=== PATIENT | male | born 1945 | race Caucasian/White ===

== ENCOUNTER 2016-08-02 06:42 | Day surgery (SDC) | payer MEDICARE ==
[2016-07-31 12:17] VITALS: BMI 24.4
[~2016-08-02 06:42] MED LIST: LACTATED RINGERS 1,000 ML IV SCH; LIDOCAINE 1% 20 ML VIAL (10MG/ML) FOR IV START INTRADERMA PRN
[2016-08-02 07:15] VITALS: TEMP 97.8
[2016-08-02] MEDS ORDERED: LACTATED RINGERS 1,000 ML IV ONE (07:16)
[2016-08-02] MEDS ORDERED: PROPOFOL 10 MG/ML 20 ML VIAL IV ONE (07:48)
--- NOTE | 2016-08-02 07:54 | P.GSHP ---
History of Present Illness H&P Date: 08/02/16 Chief Complaint: History of colonic polyps This a 71-year-old male who has history of colonic polyps. Patient rents today for colonoscopy. - Constitutional Constitutional: Reports as per HPI Past Medical History Past Medical History: Cancer, GERD/Reflux, Hyperlipidemia, Hypertension, Rheumatoid Arthritis (RA), Thyroid Disorder Additional Past Medical History / Comment(s): PROSTATE CANCER -BRACYTHERAPY SEEDS IMPLANTED ( 7-8 YRS AGO)., HX OF HIATAL HERNIA WITH SURGERY., HAS POISON CALLUM ON LEFT HAND, FOOT AND SHOULDER. History of Any Multi-Drug Resistant Organisms: None Reported Past Surgical History: Orthopedic Surgery, Tonsillectomy Additional Past Surgical History / Comment(s): COLONOSCOPY, RIGHT KNEE ARTHROSCOPY, BRACHYTHERAPY SEED IMPLANT Past Anesthesia/Blood Transfusion Reactions: No Reported Reaction Additional Past Anesthesia/Blood Transfusion Reaction / Comment(s): FELT DIZZY AFTER COLONOSCOPY. Past Psychological History: No Psychological Hx Reported Smoking Status: Never smoker Past Alcohol Use History: Occasional Additional Past Alcohol Use History / Comment(s): APPROX 10 DRINKS PER WEEK. Past Drug Use History: None Reported - Past Family History Mother Family Medical History: No Reported History Brother(s) Family Medical History: Cancer Additional Family Medical History / Comment(s): liver Medications and Allergies Home Medications Medication Instructions Recorded Confirmed Type Aspirin 81 mg PO DAILY 07/13/15 08/02/16 History Lisinopril [Zestril] 5 mg PO DAILY 07/13/15 08/02/16 History Pravastatin Sodium [Pravachol] 20 mg PO HS 07/13/15 08/02/16 History Cholecalciferol [Vitamin D3] 1,000 unit PO DAILY 01/10/16 08/02/16 History Folic Acid 1 mg PO DAILY 01/10/16 08/02/16 History Methotrexate Sodium [Methotrexate] 25 mg PO TU 01/10/16 08/02/16 History Calcium 1200mg & D3 1000 1 tab PO DAILY 07/31/16 08/02/16 History Colestipol 10 mg PO DAILY 07/31/16 08/02/16 History Levothyroxine Sodium 125 mcg PO DAILY 07/31/16 08/02/16 History Allergies Allergy/AdvReac Type Severity Reaction Status Date / Time No Known Allergies Allergy Verified 08/02/16 07:08 Surgical - Exam Vital Signs Temp Pulse Resp BP Pulse Ox 97.8 F 50 L 18 139/83 98 08/02/16 07:13 08/02/16 07:13 08/02/16 07:13 08/02/16 07:13 08/02/16 07:13 - General well developed, no distress - Eyes PERRL - ENT normal pinna - Neck no masses - Respiratory normal expansion - Cardiovascular Rhythm: regular - Abdomen Abdomen: soft, non tender Assessment and Plan Plan: History of colonic polyps. We'll perform colonoscopy.
--- NOTE | 2016-08-02 08:11 | P.OP ---
Date of Procedure: 08/02/16 Preoperative Diagnosis: Colon polyps Postoperative Diagnosis: Multiple colon polyps located near the hepatic flexure Procedure(s) Performed: Colonoscopy Implants: Anesthesia: MAC Surgeon: Rasta Babin Pathology: other (Colon polyps) Condition: stable Disposition: PACU Indications for Procedure: Operative Findings: Description of Procedure: The patient's placed on the endoscopy table lateral position. He received IV sedation. Digital rectal exam was performed which revealed a few external hemorrhoids. The prostate was symmetric without nodules. The flexible colonoscope was then placed patient anus passed throughout the entire colon. The ileocecal valve was visualized. The cecum, ascending colon appeared normal. Just distal to the hepatic flexure there was a cluster of small sessile polyps. His removed with a forcep. This cluster was in the same location as his previous colonoscopy. This point there scope was withdrawn and the remainder of the transverse colon descending colon appeared normal. In the sigmoid: There a few scattered diverticula. The scope was then brought back the rectum and this appeared normal. Scope was withdrawn for patient.
[2016-08-02 08:27] VITALS: RESP 16
[2016-08-02 08:38] VITALS: BP 130/79; PULSE 54
== END 2016-08-02 09:43 | disposition home or self-care (01) ==
LOC: ORWHC2ENDO 06:42
PROVIDERS: ATTEND Surgery
DX: Z12.11 Encounter for screening for malignant neoplasm of colon (principal); K63.5 Polyp of colon; Z86.010 Personal history of colon polyps; K64.4 Residual hemorrhoidal skin tags; K21.9 Gastro-esophageal reflux disease without esophagitis; E78.5 Hyperlipidemia, unspecified; I10 Essential (primary) hypertension; M06.9 Rheumatoid arthritis, unspecified; E07.9 Disorder of thyroid, unspecified; Z85.46 Personal history of malignant neoplasm of prostate; Z79.899 Other long term (current) drug therapy; Z79.82 Long term (current) use of aspirin
CPT/HCPCS: 88305; 45380; J2704

== ENCOUNTER 2017-08-29 09:29 | Day surgery (SDC) | payer MEDICARE ==
[2017-08-26 16:46] VITALS: BMI 23.7
[~2017-08-29 09:29] MED LIST changes: -LIDOCAINE 1% 20 ML VIAL (10MG/ML) FOR IV START INTRADERMA PRN
[2017-08-29 10:07] VITALS: TEMP 97.4
[2017-08-29] MEDS ORDERED: LIDOCAINE 1% 20 ML VIAL (10MG/ML) FOR IV START INTRADERMA ONE (10:07)
[2017-08-29] MEDS ORDERED: PROPOFOL 10 MG/ML 20 ML VIAL IV ONE (11:34)
[2017-08-29] MEDS ORDERED: LIDOCAINE 1% INJ 10MG/ML (20 ML MDV) ONE (11:34)
--- NOTE | 2017-08-29 11:38 | P.GSHP ---
History of Present Illness H&P Date: 08/29/17 Chief Complaint: History of colon polyps This a 72-year-old male who presents today for colonoscopy. Patient had previous colon polyps. He denies any GI bleed. Past Medical History Past Medical History: Cancer, GERD/Reflux, Hyperlipidemia, Hypertension, Rheumatoid Arthritis (RA), Thyroid Disorder Additional Past Medical History / Comment(s): PROSTATE CANCER -BRACYTHERAPY SEEDS IMPLANTED ( 7-8 YRS AGO)., HX OF HIATAL HERNIA WITH SURGERY History of Any Multi-Drug Resistant Organisms: None Reported Past Surgical History: Orthopedic Surgery, Tonsillectomy Additional Past Surgical History / Comment(s): COLONOSCOPY, RIGHT KNEE ARTHROSCOPY, BRACHYTHERAPY SEED IMPLANT Past Anesthesia/Blood Transfusion Reactions: No Reported Reaction Additional Past Anesthesia/Blood Transfusion Reaction / Comment(s): FELT DIZZY AFTER COLONOSCOPY. Smoking Status: Never smoker - Past Family History Mother Family Medical History: No Reported History Brother(s) Family Medical History: Cancer Additional Family Medical History / Comment(s): liver Medications and Allergies Home Medications Medication Instructions Recorded Confirmed Type Lisinopril [Zestril] 5 mg PO QAM 07/13/15 08/29/17 History Pravastatin Sodium [Pravachol] 20 mg PO HS 07/13/15 08/29/17 History Cholecalciferol [Vitamin D3] 1,000 unit PO DAILY 01/10/16 08/29/17 History Folic Acid 1 mg PO DAILY 01/10/16 08/29/17 History Methotrexate Sodium [Methotrexate] 25 mg PO TU 01/10/16 08/29/17 History Levothyroxine Sodium 125 mcg PO QAM 07/31/16 08/29/17 History Aspirin 81 mg PO DAILY 08/26/17 08/29/17 History Colestipol [Colestid] 10 gm PO DAILY 08/26/17 08/29/17 History Allergies Allergy/AdvReac Type Severity Reaction Status Date / Time No Known Allergies Allergy Verified 08/29/17 10:05 Surgical - Exam Vital Signs Temp Pulse Resp BP Pulse Ox 97.4 F L 49 L 18 141/80 98 08/29/17 10:00 08/29/17 10:00 08/29/17 10:00 08/29/17 10:08/29/17 10:00 - General well developed, well nourished, no distress - Eyes PERRL - ENT normal pinna - Neck no masses - Respiratory normal expansion - Cardiovascular Rhythm: regular - Abdomen Abdomen: soft, non tender Assessment and Plan Assessment: History of colon polyps. We'll perform colonoscopy.
--- NOTE | 2017-08-29 12:01 | P.OP ---
Date of Procedure: 08/29/17 Preoperative Diagnosis: Colon polyps Postoperative Diagnosis: Hepatic flexure colon polyps Procedure(s) Performed: Colonoscopy Anesthesia: MAC Surgeon: Rasta Babin Pathology: other (Hepatic flexure colon polyps) Condition: stable Disposition: PACU Description of Procedure: The patient's placed on the endoscopy table in the lateral position. He received IV sedation. Digital rectal exam was performed which revealed a hemorrhoid. The flexible colonoscope was then placed patient anus passed throughout the entire colon. The ileocecal valve was visualized. This week and , ascending colon appeared normal. At the level of the hepatic flexure there was a cluster of polyps. This appeared to have increased in size was previous colonoscopy. I released ulcer biopsied. The area was tattooed with the ink spot just distal to the area the polyps. The remainder of the transverse colon descending and sigmoid colon appeared normal. The scope summer back the rectum and this appeared normal. Scope was withdrawn for patient.
[2017-08-29 12:17] VITALS: BP 125/79; PULSE 49; RESP 18
== END 2017-08-29 12:41 | disposition home or self-care (01) ==
LOC: ORWHC2ENDO 09:29
PROVIDERS: ATTEND Surgery
DX: Z12.11 Encounter for screening for malignant neoplasm of colon (principal); K63.5 Polyp of colon; Z86.010 Personal history of colon polyps; K21.9 Gastro-esophageal reflux disease without esophagitis; E78.5 Hyperlipidemia, unspecified; I10 Essential (primary) hypertension; M06.9 Rheumatoid arthritis, unspecified; E07.9 Disorder of thyroid, unspecified; Z85.46 Personal history of malignant neoplasm of prostate; Z79.82 Long term (current) use of aspirin; Z79.890 Hormone replacement therapy; Z79.899 Other long term (current) drug therapy
CPT/HCPCS: 88305; 45380; 45381; J2001; J2704; 44404

== ENCOUNTER → 2017-09-19 | Outpatient (CLI) | payer MEDICARE ==
[2017-09-19 10:21] LABS: HCT 40.3 % (39.0-53.0); HGB 13.6 gm/dL (13.0-17.5); MCH 33.2 pg (25.0-35.0); MCHC 33.7 g/dL (31.0-37.0); MCV 98.6 fL (80.0-100.0); Mean Platelet Volume 7.2; Platelet Count 240 k/uL (150-450); RBC 4.09 m/uL (4.30-5.90); RDW 13.4 % (11.5-15.5); WBC 4.5 k/uL (3.8-10.6)
== END | disposition home or self-care (01) ==
LOC: LABPAT 09:32
PROVIDERS: ATTEND Surgery
DX: Z01.818 Encounter for other preprocedural examination (principal); K63.5 Polyp of colon; Z01.812 Encounter for preprocedural laboratory examination; Z90.49 Acquired absence of other specified parts of digestive tract
CPT/HCPCS: 36415; 80051; 85027; 86850; 86900; 86901; 93005

== ENCOUNTER 2017-09-26 08:12 | Inpatient (IN) | payer MEDICARE ==
[2017-09-19 15:07] VITALS: BMI 23.7
[~2017-09-26 08:12] MED LIST changes: +DEXAMETHASONE SOD PHOSPHATE 10 MG/ML 1 ML VIAL IV ONE; +FAMOTIDINE 20 MG/2 ML VIAL IV PRN; +HEPARIN SODIUM,PORCINE 5,000 UNIT/ML 1 ML VIAL SQ ONE; +HYDROmorphone 0.5 MG/0.5 ML SYRINGE IVP PRN; -LACTATED RINGERS 1,000 ML IV SCH; +LIDOCAINE 1% 20 ML VIAL (10MG/ML) FOR IV START INTRADERMA PRN; +ONDANSETRON 4 MG/2 ML VIAL IVP ONE; +ceFAZolin IN SWFI 2 GM/20 ML SYRINGE IVP ONE; +metroNIDAZOLE-NS PMX 500 MG in SALINE 1 100ML.BAG IVPB ONE
[2017-09-26] MEDS ORDERED: ONDANSETRON 4 MG/2 ML VIAL IVP PRN ×2 (09:07→12:23)
[2017-09-26] MEDS ORDERED: NALOXONE 0.4 MG/ML 1 ML VIAL IV PRN (09:07)
[2017-09-26] MEDS ORDERED: NALBUPHINE 10 MG/ML VIAL (10ML MDV) IV PRN (09:07)
[2017-09-26] MEDS ORDERED: ROPIVACAINE 300 MG, HYDROMORPHONE (PF) 5 MG in SODIUM CHLORIDE 0.9% 190 ML EPIDURAL PRN (09:07)
[2017-09-26] MEDS: LACTATED RINGERS 1,000 ML IV SCH ×3 (09:16→19:46)
[2017-09-26 09:24] LABS: Basophils % (A) 0 %; Eosinophils # (A) 0.1 k/uL (0-0.7); Eosinophils % (A) 2 %; HCT 41.1 % (39.0-53.0); HGB 13.7 gm/dL (13.0-17.5); Lymphocytes # (A) 0.9 k/uL (1.0-4.8); Lymphocytes % (A) 17 %; MCH 32.9 pg (25.0-35.0); MCHC 33.4 g/dL (31.0-37.0); MCV 98.6 fL (80.0-100.0); Mean Platelet Volume 7.2; Monocytes # (A) 0.4 k/uL (0-1.0); Monocytes % (A) 7 %; Neutrophils # (A) 3.6 k/uL (1.3-7.7); Neutrophils % (A) 70 %; Platelet Count 266 k/uL (150-450); RBC 4.17 m/uL (4.30-5.90); RDW 13.9 % (11.5-15.5); WBC 5.1 k/uL (3.8-10.6)
[2017-09-26 09:32] LABS: Albumin 4.4 g/dL (3.5-5.0); Calcium 9.5 mg/dL (8.4-10.2); Potassium 4.3 mmol/L (3.5-5.1); Total Protein 6.7 g/dL (6.3-8.2)
--- NOTE | 2017-09-26 09:59 | P.GSHP ---
History of Present Illness H&P Date: 09/26/17 Chief Complaint: History of colon polyps This a 72-year-old male presents today for laparoscopic right colectomy. Patient has history of colon polyps. He presents today for right colectomy due to recurrent polyps. Past Medical History Past Medical History: Cancer, GERD/Reflux, Hyperlipidemia, Hypertension, Rheumatoid Arthritis (RA), Thyroid Disorder Additional Past Medical History / Comment(s): PROSTATE CANCER -BRACYTHERAPY SEEDS IMPLANTED ( 7-8 YRS AGO)., HX OF HIATAL HERNIA WITH SURGERY History of Any Multi-Drug Resistant Organisms: None Reported Past Surgical History: Orthopedic Surgery, Tonsillectomy Additional Past Surgical History / Comment(s): COLONOSCOPY, RIGHT KNEE ARTHROSCOPY, BRACHYTHERAPY SEED IMPLANT Past Anesthesia/Blood Transfusion Reactions: No Reported Reaction Additional Past Anesthesia/Blood Transfusion Reaction / Comment(s): FELT DIZZY AFTER COLONOSCOPY. Smoking Status: Never smoker - Past Family History Mother Family Medical History: No Reported History Brother(s) Family Medical History: Cancer Additional Family Medical History / Comment(s): liver Medications and Allergies Home Medications Medication Instructions Recorded Confirmed Type Lisinopril [Zestril] 5 mg PO QAM 07/13/15 09/26/17 History Pravastatin Sodium [Pravachol] 20 mg PO HS 07/13/15 09/26/17 History Cholecalciferol [Vitamin D3] 1,000 unit PO DAILY 01/10/16 09/26/17 History Folic Acid 1 mg PO DAILY 01/10/16 09/26/17 History Methotrexate Sodium [Methotrexate] 25 mg PO TU 01/10/16 09/26/17 History Levothyroxine Sodium 125 mcg PO QAM 07/31/16 09/26/17 History Aspirin 81 mg PO DAILY 08/26/17 09/26/17 History Colestipol [Colestid] 10 gm PO DAILY 08/26/17 09/26/17 History Allergies Allergy/AdvReac Type Severity Reaction Status Date / Time No Known Allergies Allergy Verified 09/26/17 08:51 Surgical - Exam Vital Signs Temp Pulse Resp BP Pulse Ox 98.6 F 55 L 16 160/81 98 09/26/17 08:47 09/26/17 08:47 09/26/17 08:47 09/26/17 08:47 09/26/17 08:47 - General well developed, no distress - Eyes PERRL - ENT normal pinna - Neck no masses - Respiratory normal expansion - Cardiovascular Rhythm: regular - Abdomen Abdomen: soft, non tender Results - Labs 09/26/17 09:05 09/26/17 09:05 Abnormal Lab Results - Last 24 Hours (Table) 09/26/17 09/26/17 Range/Units 09:05 09:05 RBC 4.17 L (4.30-5.90) m/uL Lymphocytes # 0.9 L (1.0-4.8) k/uL Total Bilirubin 2.0 H (0.2-1.3) mg/dL Diabetes panel 09/26/17 Range/Units 09:05 Sodium 141 (137-145) mmol/L Potassium 4.3 (3.5-5.1) mmol/L Chloride 106 (98-107) mmol/L Carbon Dioxide 27 (22-30) mmol/L BUN 17 (9-20) mg/dL Creatinine 1.01 (0.66-1.25) mg/dL Glucose 95 (74-99) mg/dL Calcium 9.5 (8.4-10.2) mg/dL AST 27 (17-59) U/L ALT 23 (21-72) U/L Alkaline Phosphatase 53 (38-126) U/L Total Protein 6.7 (6.3-8.2) g/dL Albumin 4.4 (3.5-5.0) g/dL Calcium panel 09/26/17 Range/Units 09:05 Calcium 9.5 (8.4-10.2) mg/dL Albumin 4.4 (3.5-5.0) g/dL Pituitary panel 09/26/17 Range/Units 09:05 Sodium 141 (137-145) mmol/L Potassium 4.3 (3.5-5.1) mmol/L Chloride 106 (98-107) mmol/L Carbon Dioxide 27 (22-30) mmol/L BUN 17 (9-20) mg/dL Creatinine 1.01 (0.66-1.25) mg/dL Glucose 95 (74-99) mg/dL Calcium 9.5 (8.4-10.2) mg/dL Adrenal panel 09/26/17 Range/Units 09:05 Sodium 141 (137-145) mmol/L Potassium 4.3 (3.5-5.1) mmol/L Chloride 106 (98-107) mmol/L Carbon Dioxide 27 (22-30) mmol/L BUN 17 (9-20) mg/dL Creatinine 1.01 (0.66-1.25) mg/dL Glucose 95 (74-99) mg/dL Calcium 9.5 (8.4-10.2) mg/dL Total Bilirubin 2.0 H (0.2-1.3) mg/dL AST 27 (17-59) U/L ALT 23 (21-72) U/L Alkaline Phosphatase 53 (38-126) U/L Total Protein 6.7 (6.3-8.2) g/dL Albumin 4.4 (3.5-5.0) g/dL Assessment and Plan Assessment: History of right colon polyps. We'll perform laparoscopic right colectomy. Sure the risks of conversion O procedure. He is also a risk of possible colostomy and wound infection.
[2017-09-26] MEDS ORDERED: MIDAZOLAM 2 MG/2 ML VIAL ONE (10:17)
[2017-09-26] MEDS ORDERED: GLYCOPYRROLATE 0.2 MG/ML 2 ML VIAL ONE (10:17)
[2017-09-26] MEDS ORDERED: HYDROmorphone (PF) 1 MG/ML ONE (10:17)
[2017-09-26] MEDS ORDERED: fentaNYL (PF) 50 MCG/ML 2 ML AMP ONE (10:17)
[2017-09-26] MEDS ORDERED: LIDOCAINE 1% INJ 10MG/ML (20 ML MDV) ONE (10:17)
[2017-09-26] MEDS ORDERED: NEOSTIGMINE 1 MG/ML 10 ML VIAL ONE (10:17)
[2017-09-26] MEDS ORDERED: PROPOFOL 10 MG/ML 20 ML VIAL IV ONE (10:17)
[2017-09-26] MEDS ORDERED: VECURONIUM 10 MG VIAL IV ONE (10:17)
[2017-09-26] MEDS ORDERED: BUPIVACAINE-EPI 0.5%-1:200,000 10 ML VIAL SQ ONE (10:48)
[2017-09-26] MEDS ORDERED: MEPERIDINE 50 MG/ML SYRINGE IVP ONE (11:54)
[2017-09-26] MEDS ORDERED: BENZOCAINE/MENTHOL LOZENG 1 EACH LOZENGE MUCOUS MEM PRN (12:23)
[2017-09-26] MEDS ORDERED: METOCLOPRAMIDE 5 MG/ML 2 ML VIAL IVP PRN (12:23)
--- NOTE | 2017-09-26 12:31 | P.OP ---
Date of Procedure: 09/26/17 Preoperative Diagnosis: Colon polyps Postoperative Diagnosis: Defer to pathology Procedure(s) Performed: Endoscopic right colectomy Partial omentectomy` Anesthesia: JAMELA Surgeon: Rasta Babin Estimated Blood Loss (ml): 50 Pathology: other (Right colon) Condition: stable Disposition: PACU Description of Procedure: The patient's placed on the operating table in the supine position. He received general anesthesia. His abdomen was prepped and draped in usual sterile fashion. Using a 5 mm optical trocar under direct visualization the peritoneal cavity was entered in the left upper quadrant. After adequate insufflation the laparoscope placed back the pleural cavity. Next a 5 mm trocar was placed in the midline suprapubic position and another 5 mm trochars placed in the left lateral position. The patient's placed the right side up position. The right colon was inspected. The area of the tattoo was seen at the hepatic flexure. At this point the right colon was mobilized by dividing the white line of Toldt with a Harmonic scissors. The transverse colon was mobilized well. After the colon was mobilized the trochars withdrawn. A small incision was made at the umbilicus. And then the colon was brought up through the wound. The terminal ileum was transected with a GI stapler. The proximal transverse colon was transected with the JUAN MANUEL stapler. The mesentery the bowel was divided using the Harmonic scissors. The presence of pathology. There was a portion of omentum which was sent to pathology as well. [id number] functional end-to-end staple anastomosis created using the JUAN MANUEL and TA stapler. 3-0 GI silk suture was used as a crotch stitch. The abdomen was irrigated there is no bleeding seen. The fascia was closed with 0 Vicryl suture. Skin was closed interrupted 3-0 Monocryl suture. Dermabond was applied. Patient tolerated the procedure and well and sent to recovery in stable condition.
[2017-09-26] MEDS: D5-0.45% NACL WITH KCL 20MEQ/L 1,000 ML IV SCH ×2 (14:16→20:02)
[2017-09-26] MEDS: HYDROmorphone 1 MG/ML 1 ML SYRINGE IVP PRN ×3 (14:52→22:20)
--- NOTE | 2017-09-26 15:17 | P.CONS ---
History of Present Illness - Reason for Consult Consult date: 09/26/17 Medical management Requesting physician: Rasta Babin - Chief Complaint Status post right colectomy - History of Present Illness This is a 72-year-old male, patient of [facility]. He has a known past medical history of hypertension, rheumatoid arthritis, hypothyroidism, hyperlipidemia and prostate cancer. Patient has had issues with recurrent colon polyps. And his undergone endoscopic right colectomy and partial omentectomy with Dr. Babin today. Estimated blood loss 50 mL. No complications after surgery. Patient is lying in bed comfortably. Reports pain is controlled. Denies any chest pain or shortness of breath denies any nausea or vomiting. Denies any bowel movement changes prior to surgery. Denies any burning with urination. Given consulted for medical management. Review of Systems Please refer to HPI otherwise unremarkable Past Medical History Past Medical History: Cancer, GERD/Reflux, Hyperlipidemia, Hypertension, Rheumatoid Arthritis (RA), Thyroid Disorder Additional Past Medical History / Comment(s): PROSTATE CANCER -BRACYTHERAPY SEEDS IMPLANTED ( 7-8 YRS AGO)., HX OF HIATAL HERNIA WITH SURGERY History of Any Multi-Drug Resistant Organisms: None Reported Past Surgical History: Orthopedic Surgery, Tonsillectomy Additional Past Surgical History / Comment(s): COLONOSCOPY, RIGHT KNEE ARTHROSCOPY, BRACHYTHERAPY SEED IMPLANT Past Anesthesia/Blood Transfusion Reactions: No Reported Reaction Additional Past Anesthesia/Blood Transfusion Reaction / Comm: FELT DIZZY AFTER COLONOSCOPY. Smoking Status: Never smoker - Past Family History Mother Family Medical History: No Reported History Brother(s) Family Medical History: Cancer Additional Family Medical History / Comment(s): liver Medications and Allergies Home Medications Medication Instructions Recorded Confirmed Type Lisinopril [Zestril] 5 mg PO QAM 07/13/15 09/26/17 History Pravastatin Sodium [Pravachol] 20 mg PO HS 07/13/15 09/26/17 History Cholecalciferol [Vitamin D3] 1,000 unit PO DAILY 01/10/16 09/26/17 History Folic Acid 1 mg PO DAILY 01/10/16 09/26/17 History Methotrexate Sodium [Methotrexate] 25 mg PO TU 01/10/16 09/26/17 History Levothyroxine Sodium 125 mcg PO QAM 07/31/16 09/26/17 History Aspirin 81 mg PO DAILY 08/26/17 09/26/17 History Colestipol [Colestid] 10 gm PO DAILY 08/26/17 09/26/17 History Allergies Allergy/AdvReac Type Severity Reaction Status Date / Time No Known Allergies Allergy Verified 09/26/17 13:08 Physical Exam Vitals: Vital Signs Temp Pulse Resp BP Pulse Ox 09/26/17 12:30 59 L 16 131/66 95 09/26/17 12:15 59 L 16 130/67 99 09/26/17 12:00 64 16 145/70 99 09/26/17 11:49 97.1 F L 73 18 140/90 100 09/26/17 08:47 98.6 F 55 L 16 160/81 98 Intake and Output 09/26/17 09/26/17 09/26/17 06:59 14:59 22:59 Intake Total 900 200 Output Total 75 Balance 825 200 Intake: IV 900 Oral 200 Output: Estimated Blood Loss 75 Head normocephalic Neck supple Lungs clear to auscultation bilaterally no wheezing or crackles Heart regular rate and rhythm S1-S2, no rub or gallop Abdomen is soft tender incision sites. Incision sites clean dry and intact Extremities no edema Neuro alert and orientated to 3 Results CBC & Chem 7: 09/26/17 09:05 09/26/17 09:05 Labs: Abnormal Lab Results - Last 24 Hours (Table) 09/26/17 09/26/17 Range/Units 09:05 09:05 RBC 4.17 L (4.30-5.90) m/uL Lymphocytes # 0.9 L (1.0-4.8) k/uL Total Bilirubin 2.0 H (0.2-1.3) mg/dL Assessment and Plan Assessment: 1. Colon polyps status post endoscopic right colectomy and partial omentectomy. Surgical service history patient on clear liquid diet. Continue his current pain management. 2. History of prostate cancer status post brachytherapy seeds implanted 7 to 8 years ago 3. Rheumatoid arthritis: Resume methotrexate 4. Essential hypertension: Resume lisinopril 5. Hyperlipidemia: Continue Pravachol 6. Hypothyroidism resume hypothyroidism 7. GERD with history of Will fundoplication GI prophylaxis Pepcid and DVT prophylaxis subcu heparin Thank you for this consultation. We'll continue to follow along during patient' s hospitalization Time with Patient: Greater than 30 (Greater than 60% of the total time spent in counseling and coordination of care.I performed an examination of the patient and discussed their management with the physician Director Epidemiology. I have reviewed the Physician Director Epidemiology's notes and agree with the documented findings and plan of care)
[2017-09-26] MEDS: HEPARIN SODIUM,PORCINE 5,000 UNIT/ML 1 ML VIAL SQ SCH ×2 (16:37→23:50)
[2017-09-26] MEDS: FAMOTIDINE 20 MG/2 ML VIAL IV SCH (19:56)
[2017-09-26] MEDS: PRAVASTATIN SODIUM 20 MG TAB PO SCH (19:56)
[2017-09-26] MEDS ORDERED: CALAMINE/ZINC OXIDE LOTION 177 ML BTL TOPICAL PRN (20:06)
[2017-09-27] MEDS: HYDROmorphone 1 MG/ML 1 ML SYRINGE IVP PRN ×3 (02:26→18:32)
[2017-09-27] MEDS: D5-0.45% NACL WITH KCL 20MEQ/L 1,000 ML IV SCH ×2 (04:46→12:06)
[2017-09-27] MEDS: LACTATED RINGERS 1,000 ML IV SCH (05:18)
[2017-09-27] MEDS: LEVOTHYROXINE 125 MCG TAB PO SCH (05:44)
[2017-09-27 07:12] LABS: Basophils % (A) 0 %; Eosinophils % (A) 0 %; HCT 33.9 % (39.0-53.0); HGB 11.2 gm/dL (13.0-17.5); Lymphocytes # (A) 0.6 k/uL (1.0-4.8); Lymphocytes % (A) 5 %; MCH 32.7 pg (25.0-35.0); MCHC 33.2 g/dL (31.0-37.0); MCV 98.6 fL (80.0-100.0); Mean Platelet Volume 7.3; Monocytes # (A) 0.5 k/uL (0-1.0); Monocytes % (A) 5 %; Neutrophils # (A) 9.3 k/uL (1.3-7.7); Neutrophils % (A) 89 %; Platelet Count 241 k/uL (150-450); RBC 3.43 m/uL (4.30-5.90); RDW 13.2 % (11.5-15.5); WBC 10.5 k/uL (3.8-10.6)
[2017-09-27 07:19] LABS: ALT 18 U/L (21-72); AST 20 U/L (17-59); Albumin 3.3 g/dL (3.5-5.0); Alkaline Phosphatase 40 U/L (38-126); Anion Gap 6 mmol/L; Blood Urea Nitrogen 14 mg/dL (9-20); Calcium 8.7 mg/dL (8.4-10.2); Carbon Dioxide 24 mmol/L (22-30); Chloride 103 mmol/L (98-107); Glucose 134 mg/dL (74-99); Potassium 4.5 mmol/L (3.5-5.1); Sodium 133 mmol/L (137-145); Total Bilirubin 1.4 mg/dL (0.2-1.3); Total Protein 5.5 g/dL (6.3-8.2)
[2017-09-27] MEDS: ALVIMOPAN 12 MG CAPSULE PO SCH ×2 (08:37→20:37)
[2017-09-27] MEDS: FAMOTIDINE 20 MG/2 ML VIAL IV SCH ×2 (08:38→20:38)
[2017-09-27] MEDS: FOLIC ACID 1 MG TAB PO SCH (08:39)
[2017-09-27] MEDS: CHOLECALCIFEROL 1,000 UNIT TAB PO SCH (08:40)
[2017-09-27] MEDS: LISINOPRIL 5 MG TAB PO SCH (08:40)
[2017-09-27] MEDS: HEPARIN SODIUM,PORCINE 5,000 UNIT/ML 1 ML VIAL SQ SCH ×3 (08:40→23:16)
[2017-09-27] MEDS: COLESTIPOL PO SCH (10:08)
--- NOTE | 2017-09-27 12:39 | P.PN ---
Subjective Progress Note Date: 09/27/17 This is a 72-year-old male, patient of [facility]. He has a known past medical history of hypertension, rheumatoid arthritis, hypothyroidism, hyperlipidemia and prostate cancer. Patient has had issues with recurrent colon polyps. And his undergone endoscopic right colectomy and partial omentectomy with Dr. Babin today. Estimated blood loss 50 mL. No complications after surgery. Patient is lying in bed comfortably. Reports pain is controlled. Denies any chest pain or shortness of breath denies any nausea or vomiting. Denies any bowel movement changes prior to surgery. Denies any burning with urination. Given consulted for medical management. 09/27/2017 patient reports that his pain is controlled. He has been up and ambulating. No nausea or vomiting. He is not passing gas or had a bowel movement yet. Denies any chest pain or shortness of breath. Denies any difficulty urinating. Currently on a clear liquid diet. Sodium level has dropped from 141-133 Objective - Vital Signs Vital signs: Vital Signs Temp 97.3 F L 09/27/17 08:32 Pulse 53 L 09/27/17 08:32 Resp 16 09/27/17 08:32 BP 103/51 09/27/17 08:32 Pulse Ox 99 09/27/17 08:32 Intake & Output 09/26/17 09/27/17 09/27/17 18:59 06:59 18:59 Intake Total 1337 1000 360 Output Total 75 Balance 1262 1000 360 Weight 77.111 kg Intake: IV 900 Intake, IV Titration 1000 Amount D5-0.45% NaCl with KCl 1000 20Meq/l 1,000 ml @ 125 mls/hr IV .Q8H [facility] Rx#: [id number] Oral 437 360 Output: Estimated Blood Loss 75 Other: # Voids 1 1 - Exam Head normocephalic Neck supple Lungs clear to auscultation bilaterally no wheezing or crackles Heart regular rate and rhythm S1-S2, no rub or gallop Abdomen is soft hypoactive bowel sounds nondistended Extremities no edema Neuro alert and orientated to 3 - Labs CBC & Chem 7: 09/27/17 06:16 09/27/17 06:16 Labs: Abnormal Lab Results - Last 24 Hours (Table) 09/27/17 09/27/17 Range/Units 06:16 06:16 RBC 3.43 L (4.30-5.90) m/uL Hgb 11.2 L (13.0-17.5) gm/dL Hct 33.9 L (39.0-53.0) % Neutrophils # 9.3 H (1.3-7.7) k/uL Lymphocytes # 0.6 L (1.0-4.8) k/uL Sodium 133 L (137-145) mmol/L Glucose 134 H (74-99) mg/dL Total Bilirubin 1.4 H (0.2-1.3) mg/dL ALT 18 L (21-72) U/L Total Protein 5.5 L (6.3-8.2) g/dL Albumin 3.3 L (3.5-5.0) g/dL Assessment and Plan Assessment: 1. Colon polyps status post endoscopic right colectomy and partial omentectomy. Surgical service history patient on clear liquid diet. Continue his current pain management. 2. History of prostate cancer status post brachytherapy seeds implanted 7 to 8 years ago 3. Rheumatoid arthritis: Resume methotrexate 4. Essential hypertension: Resume lisinopril 5. Hyperlipidemia: Continue Pravachol 6. Hypothyroidism resume hypothyroidism 7. GERD with history of Will fundoplication 8. Hyponatremia: Sodium 133. Repeat labs in a.m. and monitor GI prophylaxis Pepcid and DVT prophylaxis subcu heparin I performed an examination of the patient and discussed their management with the physician Hospice Fellow. I have reviewed the Physician Hospice Fellow's notes and agree with the documented findings and plan of care
--- NOTE | 2017-09-27 18:14 | P.PN ---
Subjective Progress Note Date: 09/27/17 Principal diagnosis: Right colon polyps Patient's postoperative day 1 from laparoscopic right colectomy. He is doing quite well. He has minimal points of pain. Objective - Vital Signs Vital signs: Vital Signs Temp 98.9 F 09/27/17 15:46 Pulse 56 L 09/27/17 15:46 Resp 16 09/27/17 16:00 BP 146/83 09/27/17 15:46 Pulse Ox 98 09/27/17 15:46 Intake & Output 09/26/17 09/27/17 09/27/17 18:59 06:59 18:59 Intake Total 1337 1000 360 Output Total 75 Balance 1262 1000 360 Weight 77.111 kg Intake: IV 900 Intake, IV Titration 1000 Amount D5-0.45% NaCl with KCl 1000 20Meq/l 1,000 ml @ 125 mls/hr IV .Q8H [facility] Rx#: [id number] Oral 437 360 Output: Estimated Blood Loss 75 Other: # Voids 1 2 - Gastrointestinal Gastrointestinal Comment(s): Abdomen soft. Incision site is clean dry tach. - Labs CBC & Chem 7: 09/27/17 06:16 09/27/17 06:16 Labs: Abnormal Lab Results - Last 24 Hours (Table) 09/27/17 09/27/17 Range/Units 06:16 06:16 RBC 3.43 L (4.30-5.90) m/uL Hgb 11.2 L (13.0-17.5) gm/dL Hct 33.9 L (39.0-53.0) % Neutrophils # 9.3 H (1.3-7.7) k/uL Lymphocytes # 0.6 L (1.0-4.8) k/uL Sodium 133 L (137-145) mmol/L Glucose 134 H (74-99) mg/dL Total Bilirubin 1.4 H (0.2-1.3) mg/dL ALT 18 L (21-72) U/L Total Protein 5.5 L (6.3-8.2) g/dL Albumin 3.3 L (3.5-5.0) g/dL Assessment and Plan Assessment: Status post right colectomy for colonic polyps. Patient is doing well. Most likely discharged home in the next 48 hours.
[2017-09-27] MEDS: SODIUM CHLORIDE 0.9% 1,000 ML IV SCH ×2 (18:32→23:53)
[2017-09-27] MEDS: PRAVASTATIN SODIUM 20 MG TAB PO SCH (20:37)
[2017-09-28] MEDS: HYDROmorphone 1 MG/ML 1 ML SYRINGE IVP PRN ×5 (00:15→21:22)
[2017-09-28] MEDS: LACTATED RINGERS 1,000 ML IV SCH (05:45)
[2017-09-28] MEDS: LEVOTHYROXINE 125 MCG TAB PO SCH (05:45)
[2017-09-28 07:39] LABS: Basophils % (A) 0 %; Eosinophils # (A) 0.1 k/uL (0-0.7); Eosinophils % (A) 1 %; HCT 41.7 % (39.0-53.0); HGB 13.2 gm/dL (13.0-17.5); Lymphocytes # (A) 1.6 k/uL (1.0-4.8); Lymphocytes % (A) 17 %; MCH 31.7 pg (25.0-35.0); MCHC 31.7 g/dL (31.0-37.0); MCV 99.8 fL (80.0-100.0); Mean Platelet Volume 7.7; Monocytes # (A) 0.5 k/uL (0-1.0); Monocytes % (A) 6 %; Neutrophils # (A) 6.9 k/uL (1.3-7.7); Neutrophils % (A) 75 %; Platelet Count 271 k/uL (150-450); RBC 4.18 m/uL (4.30-5.90); RDW 13.2 % (11.5-15.5); WBC 9.2 k/uL (3.8-10.6)
[2017-09-28 07:52] LABS: ALT 24 U/L (21-72); AST 32 U/L (17-59); Albumin 4.3 g/dL (3.5-5.0); Alkaline Phosphatase 54 U/L (38-126); Anion Gap 9 mmol/L; Blood Urea Nitrogen 9 mg/dL (9-20); Calcium 9.7 mg/dL (8.4-10.2); Carbon Dioxide 27 mmol/L (22-30); Chloride 103 mmol/L (98-107); Glucose 97 mg/dL (74-99); Sodium 139 mmol/L (137-145); Total Bilirubin 1.1 mg/dL (0.2-1.3); Total Protein 6.8 g/dL (6.3-8.2)
[2017-09-28] MEDS: COLESTIPOL PO SCH (08:11)
[2017-09-28] MEDS: FAMOTIDINE 20 MG TAB PO SCH ×2 (08:12→21:23)
[2017-09-28] MEDS: ALVIMOPAN 12 MG CAPSULE PO SCH ×2 (08:12→21:23)
[2017-09-28] MEDS: LISINOPRIL 5 MG TAB PO SCH (08:12)
[2017-09-28] MEDS: CHOLECALCIFEROL 1,000 UNIT TAB PO SCH (08:12)
[2017-09-28] MEDS: SODIUM CHLORIDE 0.9% 1,000 ML IV SCH ×3 (08:12→23:39)
[2017-09-28] MEDS: HEPARIN SODIUM,PORCINE 5,000 UNIT/ML 1 ML VIAL SQ SCH ×3 (08:12→23:39)
--- NOTE | 2017-09-28 11:08 | P.PN ---
Subjective Progress Note Date: 09/28/17 Principal diagnosis: Right colectomy Patient doing much better today. His pain is improved. Tolerating clears. No bowel movement. White blood cell count 9.2. Objective - Vital Signs Vital signs: Vital Signs Temp 98.8 F 09/28/17 07:20 Pulse 53 L 09/28/17 07:20 Resp 16 09/28/17 07:20 BP 137/79 09/28/17 07:20 Pulse Ox 94 L 09/28/17 07:20 Intake & Output 09/27/17 09/28/17 09/28/17 18:59 06:59 18:59 Intake Total 360 1957 Output Total 1240 Balance 360 717 Intake: Intake, IV Titration 1147 Amount Sodium Chloride 0.9% 1, 1147 000 ml @ 125 mls/hr IV . Q8H [facility] Rx#:[id number] Oral 360 810 Output: Urine 1240 Other: Voiding Method Toilet Urinal # Voids 2 1 # Bowel Movements 0 - Exam Abdomen: Soft, nondistended, incision clean and dry, minimal tenderness - Labs CBC & Chem 7: 09/28/17 06:01 09/28/17 06:01 Labs: Abnormal Lab Results - Last 24 Hours (Table) 09/28/17 Range/Units 06:01 RBC 4.18 L (4.30-5.90) m/uL Assessment and Plan (1) Colon polyp Narrative/Plan: Increase activity. Advance diet to full liquids. Recheck labs tomorrow. Current Visit: Yes Status: Acute Code(s): K63.5 - POLYP OF COLON SNOMED Code(s): 63089437
[2017-09-28] MEDS: FOLIC ACID 1 MG TAB PO SCH (11:29)
--- NOTE | 2017-09-28 16:02 | P.PN ---
Subjective Progress Note Date: 09/28/17 This is a 72-year-old male, patient of [facility]. He has a known past medical history of hypertension, rheumatoid arthritis, hypothyroidism, hyperlipidemia and prostate cancer. Patient has had issues with recurrent colon polyps. And his undergone endoscopic right colectomy and partial omentectomy with Dr. Babin today. Estimated blood loss 50 mL. No complications after surgery. Patient is lying in bed comfortably. Reports pain is controlled. Denies any chest pain or shortness of breath denies any nausea or vomiting. Denies any bowel movement changes prior to surgery. Denies any burning with urination. Given consulted for medical management. 09/27/2017 patient reports that his pain is controlled. He has been up and ambulating. No nausea or vomiting. He is not passing gas or had a bowel movement yet. Denies any chest pain or shortness of breath. Denies any difficulty urinating. Currently on a clear liquid diet. Sodium level has dropped from 141-133 On 09/28/2017 patient is alert and oriented 3 he is able to ambulate without any difficulty he is getting full liquid diet so far he has not had any bowel movements and not passing any gas otherwise he denies any symptoms Objective - Vital Signs Vital signs: Vital Signs Temp 98.8 F 09/28/17 07:20 Pulse 62 09/28/17 15:37 Resp 18 09/28/17 15:37 BP 155/97 09/28/17 15:37 Pulse Ox 97 09/28/17 15:37 Intake & Output 09/27/17 09/28/17 09/28/17 18:59 06:59 18:59 Intake Total 360 1957 540 Output Total 1240 Balance 360 717 540 Intake: Intake, IV Titration 1147 Amount Sodium Chloride 0.9% 1, 1147 000 ml @ 125 mls/hr IV . Q8H [facility] Rx#:[id number] Oral 360 810 540 Output: Urine 1240 Other: Voiding Method Toilet Urinal # Voids 2 1 1 # Bowel Movements 0 - Exam Head normocephalic and atraumatic Neck supple no JVD no goiter Lungs clear to auscultation bilaterally no wheezing or crackles Heart regular rate and rhythm S1-S2, no rub or gallop Abdomen is soft hypoactive bowel sounds nondistended Extremities no edema no cyanosis or clubbing Neuro alert and orientated to 3 no gross focal deficit - Labs CBC & Chem 7: 09/28/17 06:01 09/28/17 06:01 Labs: Abnormal Lab Results - Last 24 Hours (Table) 09/28/17 Range/Units 06:01 RBC 4.18 L (4.30-5.90) m/uL Assessment and Plan Plan: 1. Colon polyps status post endoscopic right colectomy and partial omentectomy. Surgical service history patient on clear liquid diet. Continue his current pain management. 2. History of prostate cancer status post brachytherapy seeds implanted 7 to 8 years ago 3. Rheumatoid arthritis: Resume methotrexate 4. Essential hypertension: Resume lisinopril 5. Hyperlipidemia: Continue Pravachol 6. Hypothyroidism resume hypothyroidism 7. GERD with history of Will fundoplication 8. Hyponatremia: Sodium 139. Repeat labs in a.m. and monitor GI prophylaxis Pepcid and DVT prophylaxis subcu heparin
[2017-09-28] MEDS: PRAVASTATIN SODIUM 20 MG TAB PO SCH (21:23)
[2017-09-29] MEDS: LACTATED RINGERS 1,000 ML IV SCH (00:46)
[2017-09-29] MEDS: HYDROmorphone 1 MG/ML 1 ML SYRINGE IVP PRN ×3 (04:44→11:38)
[2017-09-29] MEDS: LEVOTHYROXINE 125 MCG TAB PO SCH (06:14)
[2017-09-29 07:20] LABS: Basophils % (A) 0 %; Eosinophils # (A) 0.1 k/uL (0-0.7); Eosinophils % (A) 1 %; Lymphocytes # (A) 0.7 k/uL (1.0-4.8); Lymphocytes % (A) 11 %; MCH 33.5 pg (25.0-35.0); MCHC 34.4 g/dL (31.0-37.0); MCV 97.2 fL (80.0-100.0); Mean Platelet Volume 7.3; Monocytes # (A) 0.4 k/uL (0-1.0); Monocytes % (A) 6 %; Neutrophils # (A) 5.7 k/uL (1.3-7.7); Neutrophils % (A) 82 %; Platelet Count 195 k/uL (150-450); RDW 13.1 % (11.5-15.5)
[2017-09-29] MEDS: SODIUM CHLORIDE 0.9% 1,000 ML IV SCH ×2 (07:28→17:18)
[2017-09-29 07:29] LABS: ALT 21 U/L (21-72); AST 26 U/L (17-59); Albumin 3.5 g/dL (3.5-5.0); Alkaline Phosphatase 46 U/L (38-126); Anion Gap 7 mmol/L; Blood Urea Nitrogen 7 mg/dL (9-20); Carbon Dioxide 26 mmol/L (22-30); Chloride 103 mmol/L (98-107); Glucose 98 mg/dL (74-99); Potassium 4.1 mmol/L (3.5-5.1); Sodium 136 mmol/L (137-145); Total Protein 5.6 g/dL (6.3-8.2)
[2017-09-29] MEDS: LISINOPRIL 5 MG TAB PO SCH (09:24)
[2017-09-29] MEDS: HEPARIN SODIUM,PORCINE 5,000 UNIT/ML 1 ML VIAL SQ SCH ×2 (09:24→17:18)
[2017-09-29] MEDS: ALVIMOPAN 12 MG CAPSULE PO SCH ×2 (09:24→20:21)
[2017-09-29] MEDS: FAMOTIDINE 20 MG TAB PO SCH ×2 (09:24→20:21)
[2017-09-29] MEDS: CHOLECALCIFEROL 1,000 UNIT TAB PO SCH (09:24)
[2017-09-29] MEDS: COLESTIPOL PO SCH (09:28)
--- NOTE | 2017-09-29 10:56 | P.PN ---
Subjective Progress Note Date: 09/29/17 Principal diagnosis: Right colectomy Patient doing well today. Denies abdominal pain. Tolerating full liquids. Positive flatus. No bowel movement. White blood cell count 7. Objective - Vital Signs Vital signs: Vital Signs Temp 97.0 F L 09/29/17 07:40 Pulse 56 L 09/29/17 07:40 Resp 18 09/29/17 07:40 BP 169/89 09/29/17 07:40 Pulse Ox 95 09/29/17 00:30 Intake & Output 09/28/17 09/29/17 09/29/17 18:59 06:59 18:59 Intake Total 540 2100 Output Total 100 700 Balance 540 2000 -700 Intake: Intake, IV Titration 1500 Amount Sodium Chloride 0.9% 1, 1500 000 ml @ 125 mls/hr IV . Q8H [facility] Rx#:[id number] Oral 540 600 Output: Urine 100 700 Other: # Voids 1 3 - Exam Abdomen: Soft, nondistended, incision clean and dry, minimal tenderness - Labs CBC & Chem 7: 09/29/17 06:30 09/29/17 06:30 Labs: Abnormal Lab Results - Last 24 Hours (Table) 09/29/17 09/29/17 Range/Units 06:30 06:30 RBC 3.60 L (4.30-5.90) m/uL Hgb 12.0 L (13.0-17.5) gm/dL Hct 35.0 L (39.0-53.0) % Lymphocytes # 0.7 L (1.0-4.8) k/uL Sodium 136 L (137-145) mmol/L BUN 7 L (9-20) mg/dL Total Protein 5.6 L (6.3-8.2) g/dL Assessment and Plan (1) Colon polyp Narrative/Plan: Increase diet. Ambulate. Possible discharge tomorrow. Current Visit: Yes Status: Acute Code(s): K63.5 - POLYP OF COLON SNOMED Code(s): 42970873
[2017-09-29] MEDS: FOLIC ACID 1 MG TAB PO SCH (11:38)
--- NOTE | 2017-09-29 15:49 | P.PN ---
Subjective Progress Note Date: 09/29/17 This is a 72-year-old male, patient of [facility]. He has a known past medical history of hypertension, rheumatoid arthritis, hypothyroidism, hyperlipidemia and prostate cancer. Patient has had issues with recurrent colon polyps. And his undergone endoscopic right colectomy and partial omentectomy with Dr. Babin today. Estimated blood loss 50 mL. No complications after surgery. Patient is lying in bed comfortably. Reports pain is controlled. Denies any chest pain or shortness of breath denies any nausea or vomiting. Denies any bowel movement changes prior to surgery. Denies any burning with urination. Given consulted for medical management. 09/27/2017 patient reports that his pain is controlled. He has been up and ambulating. No nausea or vomiting. He is not passing gas or had a bowel movement yet. Denies any chest pain or shortness of breath. Denies any difficulty urinating. Currently on a clear liquid diet. Sodium level has dropped from 141-133 On 09/28/2017 patient is alert and oriented 3 he is able to ambulate without any difficulty he is getting full liquid diet so far he has not had any bowel movements and not passing any gas otherwise he denies any symptoms On 09/29/2017 patient is alert and oriented 3 in no apparent distress he is ambulating today he is tolerating diet well he had some nausea this morning, patient started passing gas today, no bowel movements yet. Objective - Vital Signs Vital signs: Vital Signs Temp 98.7 F 09/29/17 14:15 Pulse 62 09/29/17 14:15 Resp 16 09/29/17 14:15 BP 167/96 09/29/17 14:15 Pulse Ox 97 09/29/17 14:15 Intake & Output 09/28/17 09/29/17 09/29/17 18:59 06:59 18:59 Intake Total 540 2100 Output Total 100 1200 Balance 540 2000 -1200 Intake: Intake, IV Titration 1500 Amount Sodium Chloride 0.9% 1, 1500 000 ml @ 125 mls/hr IV . Q8H [facility] Rx#:[id number] Oral 540 600 Output: Urine 100 1200 Other: Voiding Method Toilet Urinal # Voids 1 3 - Exam Head normocephalic and atraumatic Neck supple no JVD no goiter Lungs clear to auscultation bilaterally no wheezing or crackles Heart regular rate and rhythm S1-S2, no rub or gallop Abdomen is soft hypoactive bowel sounds nondistended Extremities no edema no cyanosis or clubbing Neuro alert and orientated to 3 no gross focal deficit - Labs CBC & Chem 7: 09/29/17 06:30 09/29/17 06:30 Labs: Abnormal Lab Results - Last 24 Hours (Table) 09/29/17 09/29/17 Range/Units 06:30 06:30 RBC 3.60 L (4.30-5.90) m/uL Hgb 12.0 L (13.0-17.5) gm/dL Hct 35.0 L (39.0-53.0) % Lymphocytes # 0.7 L (1.0-4.8) k/uL Sodium 136 L (137-145) mmol/L BUN 7 L (9-20) mg/dL Total Protein 5.6 L (6.3-8.2) g/dL Assessment and Plan Plan: 1. Colon polyps status post endoscopic right colectomy and partial omentectomy. Surgical service history patient on clear liquid diet. Continue his current pain management. 2. History of prostate cancer status post brachytherapy seeds implanted 7 to 8 years ago 3. Rheumatoid arthritis: Resume methotrexate 4. Essential hypertension: Resume lisinopril 5. Hyperlipidemia: Continue Pravachol 6. Hypothyroidism resume hypothyroidism 7. GERD with history of Will fundoplication 8. Hyponatremia: Sodium 139. Repeat labs in a.m. and monitor GI prophylaxis Pepcid and DVT prophylaxis subcu heparin
[2017-09-29] MEDS: HYDROcodone/APAP 5-325MG 1 EACH TAB PO PRN (17:19)
[2017-09-29] MEDS: PRAVASTATIN SODIUM 20 MG TAB PO SCH (20:22)
[2017-09-30 00:30] VITALS: RESP 16
[2017-09-30] MEDS: SODIUM CHLORIDE 0.9% 1,000 ML IV SCH ×2 (00:31→08:09)
[2017-09-30] MEDS: HEPARIN SODIUM,PORCINE 5,000 UNIT/ML 1 ML VIAL SQ SCH ×2 (00:32→08:15)
[2017-09-30] MEDS: LACTATED RINGERS 1,000 ML IV SCH (00:33)
[2017-09-30] MEDS: HYDROcodone/APAP 5-325MG 1 EACH TAB PO PRN ×2 (01:50→08:14)
[2017-09-30] MEDS: LEVOTHYROXINE 125 MCG TAB PO SCH (05:25)
[2017-09-30 07:37] LABS: Basophils % (A) 0 %; Eosinophils # (A) 0.1 k/uL (0-0.7); Eosinophils % (A) 1 %; HCT 37.4 % (39.0-53.0); HGB 12.5 gm/dL (13.0-17.5); Lymphocytes # (A) 0.8 k/uL (1.0-4.8); Lymphocytes % (A) 11 %; MCH 32.2 pg (25.0-35.0); MCHC 33.5 g/dL (31.0-37.0); MCV 96.1 fL (80.0-100.0); Mean Platelet Volume 7.4; Monocytes # (A) 0.5 k/uL (0-1.0); Monocytes % (A) 7 %; Neutrophils # (A) 5.9 k/uL (1.3-7.7); Neutrophils % (A) 80 %; Platelet Count 217 k/uL (150-450); RDW 13.2 % (11.5-15.5); WBC 7.5 k/uL (3.8-10.6)
[2017-09-30 07:39] VITALS: BP 165/80; PULSE 57; TEMP 98.9
[2017-09-30 08:04] LABS: ALT 26 U/L (21-72); AST 28 U/L (17-59); Albumin 3.3 g/dL (3.5-5.0); Alkaline Phosphatase 50 U/L (38-126); Anion Gap 8 mmol/L; Blood Urea Nitrogen 9 mg/dL (9-20); Calcium 8.9 mg/dL (8.4-10.2); Carbon Dioxide 24 mmol/L (22-30); Chloride 103 mmol/L (98-107); Glucose 111 mg/dL (74-99); Potassium 3.5 mmol/L (3.5-5.1); Sodium 135 mmol/L (137-145); Total Bilirubin 1.4 mg/dL (0.2-1.3); Total Protein 5.4 g/dL (6.3-8.2)
[2017-09-30] MEDS: COLESTIPOL PO SCH (08:10)
[2017-09-30] MEDS: CHOLECALCIFEROL 1,000 UNIT TAB PO SCH (08:14)
[2017-09-30] MEDS: LISINOPRIL 5 MG TAB PO SCH (08:14)
[2017-09-30] MEDS: FAMOTIDINE 20 MG TAB PO SCH (08:14)
[2017-09-30] MEDS: ALVIMOPAN 12 MG CAPSULE PO SCH (08:58)
[2017-09-30] MEDS: POTASSIUM CHLORIDE ER 20 MEQ TAB.ER PO SCH ×2 (09:58→11:56)
--- NOTE | 2017-09-30 10:59 | P.PN ---
Subjective Progress Note Date: 09/30/17 72-year-old gentleman seen this morning on rounds sitting up in bed states has had several bowel movements currently is denying any nausea vomiting tolerating diet urinating no difficulty surgical dressing site dry currently is stating pain medication effective for pain control labs reviewed sodium 135 potassium 3.5 AST and ALT not elevated hemoglobin 12.5 white count 7.5 Patient is postop September 26 endoscopic right colectomy, partial omentectomy for colon polyps Objective - Vital Signs Vital signs: Vital Signs Temp 98.9 F 09/30/17 07:00 Pulse 57 L 09/30/17 07:00 Resp 16 09/30/17 07:00 BP 165/80 09/30/17 07:00 Pulse Ox 96 09/30/17 07:00 Intake & Output 09/29/17 09/30/17 09/30/17 18:59 06:59 18:59 Intake Total 1250 Output Total 1200 300 Balance -1200 950 Intake: Intake, IV Titration 1250 Amount Sodium Chloride 0.9% 1, 1250 000 ml @ 125 mls/hr IV . Q8H [facility] Rx#:[id number] Output: Urine 1200 300 Other: Voiding Method Toilet Urinal # Voids 2 # Bowel Movements 1 - Exam Physical exam Pleasant 72-year-old male sitting up in bed states has been up ambulating in the hallway pain medication has been effective for pain control Lungs adequate air movement bilaterally on room air Heart S1-S2 audible regular Abdomen surgical dressing sites dry soft nondistended nontender bowel tones present passing gas had a bowel movement tolerating diet with no nausea Extremities no edema - Labs CBC & Chem 7: 09/30/17 07:09 09/30/17 07:09 Labs: Abnormal Lab Results - Last 24 Hours (Table) 09/30/17 09/30/17 Range/Units 07:09 07:09 RBC 3.90 L (4.30-5.90) m/uL Hgb 12.5 L (13.0-17.5) gm/dL Hct 37.4 L (39.0-53.0) % Lymphocytes # 0.8 L (1.0-4.8) k/uL Sodium 135 L (137-145) mmol/L Glucose 111 H (74-99) mg/dL Total Bilirubin 1.4 H (0.2-1.3) mg/dL Total Protein 5.4 L (6.3-8.2) g/dL Albumin 3.3 L (3.5-5.0) g/dL Assessment and Plan Assessment: Impression History of prostate cancer status post brachytherapy seeds implanted 78 years ago Rheumatoid arthritis Essential hypertension Hyperlipidemia Esophageal reflex with a history of a prior mary fundoplication Hyponatremia resolved improved Status post September 26 endoscopic right colectomy, partial omentectomy for colon polyps Plan Continue postop surgical care Defer to medical service to address medical issues as they arise Pain control Anticipate discharge soon DVT and GI prophylaxis The above impression and plan of care have been discussed and directed by signing physician. Alexandra Pina nurse practitioner acting as scribe for signing physician.
[2017-09-30] MEDS: FOLIC ACID 1 MG TAB PO SCH (11:56)
--- NOTE | 2017-09-30 13:03 | P.PN ---
Subjective Progress Note Date: 09/30/17 This is a 72-year-old male, patient of [facility]. He has a known past medical history of hypertension, rheumatoid arthritis, hypothyroidism, hyperlipidemia and prostate cancer. Patient has had issues with recurrent colon polyps. And his undergone endoscopic right colectomy and partial omentectomy with Dr. Babin today. Estimated blood loss 50 mL. No complications after surgery. Patient is lying in bed comfortably. Reports pain is controlled. Denies any chest pain or shortness of breath denies any nausea or vomiting. Denies any bowel movement changes prior to surgery. Denies any burning with urination. Given consulted for medical management. 09/27/2017 patient reports that his pain is controlled. He has been up and ambulating. No nausea or vomiting. He is not passing gas or had a bowel movement yet. Denies any chest pain or shortness of breath. Denies any difficulty urinating. Currently on a clear liquid diet. Sodium level has dropped from 141-133 09/30/2017 patient is passing gas. Denies any abdominal pain. He had 2 bowel movements. Denies any chest pain or shortness breath. Denies any nausea or vomiting. Tolerating a low fiber diet. Surgical service is planning to proceed with discharge later today Objective - Vital Signs Vital signs: Vital Signs Temp 98.9 F 09/30/17 07:00 Pulse 57 L 09/30/17 07:00 Resp 16 09/30/17 07:00 BP 165/80 09/30/17 07:00 Pulse Ox 96 09/30/17 07:00 Intake & Output 09/29/17 09/30/17 09/30/17 18:59 06:59 18:59 Intake Total 1250 Output Total 1200 300 Balance -1200 950 Intake: Intake, IV Titration 1250 Amount Sodium Chloride 0.9% 1, 1250 000 ml @ 125 mls/hr IV . Q8H [facility] Rx#:[id number] Output: Urine 1200 300 Other: Voiding Method Toilet Urinal # Voids 2 # Bowel Movements 1 - Exam Head normocephalic Neck supple Lungs clear to auscultation bilaterally no wheezing or crackles Heart regular rate and rhythm S1-S2, no rub or gallop Abdomen is soft positive bowel sounds nondistended Extremities no edema Neuro alert and orientated to 3 - Labs CBC & Chem 7: 09/30/17 07:09 09/30/17 07:09 Labs: Abnormal Lab Results - Last 24 Hours (Table) 09/30/17 09/30/17 Range/Units 07:09 07:09 RBC 3.90 L (4.30-5.90) m/uL Hgb 12.5 L (13.0-17.5) gm/dL Hct 37.4 L (39.0-53.0) % Lymphocytes # 0.8 L (1.0-4.8) k/uL Sodium 135 L (137-145) mmol/L Glucose 111 H (74-99) mg/dL Total Bilirubin 1.4 H (0.2-1.3) mg/dL Total Protein 5.4 L (6.3-8.2) g/dL Albumin 3.3 L (3.5-5.0) g/dL Assessment and Plan Assessment: 1. Colon polyps status post endoscopic right colectomy and partial omentectomy. Patient now having bowel movements and passing gas. Tolerating diet. 2. History of prostate cancer status post brachytherapy seeds implanted 7 to 8 years ago 3. Rheumatoid arthritis: Resume methotrexate 4. Essential hypertension: Resume lisinopril 5. Hyperlipidemia: Continue Pravachol 6. Hypothyroidism resume hypothyroidism 7. GERD with history of Will fundoplication 8. Hyponatremia: Improved 9. Hypokalemia patient receiving potassium supplement. Patient is medically stable to proceed with discharge. Home medications reviewed. Discussed with surgical service will resume patient's baby aspirin GI prophylaxis Pepcid and DVT prophylaxis subcu heparin I performed an examination of the patient and discussed their management with the physician Lens Assorter. I have reviewed the Physician Lens Assorter's notes and agree with the documented findings and plan of care
--- NOTE | 2017-09-30 14:10 | P.DS ---
Providers Date of admission: 09/26/17 08:12 Expected date of discharge: 09/30/17 Attending physician: Rsata Babin Consults: 09/26/17 12:23 Consult Physician Routine Consulting Provider: Frederic Terrell Consult Reason/Comments: Medical management Do you want consulting provider notified?: Yes Primary care physician: [facility] Course: 72-year-old male who presented with abdominal pain has a known history of recurrent colon polyps. No postop events and on the day of discharge was felt to be hemodynamically stable and appropriate proceed with a discharge to home postop September 26 endoscopic right colectomy, partial omentectomy for colon polyps Impression History of prostate cancer status post brachytherapy seeds implanted 78 years ago Rheumatoid arthritis Essential hypertension Hyperlipidemia Esophageal reflex with a history of a prior mary fundoplication Hyponatremia resolved improved Status post September 26 endoscopic right colectomy, partial omentectomy for colon polyps The above impression and plan of care have been discussed and directed by signing physician. Alexandra Pina nurse practitioner acting as scribe for signing physician. Plan - Discharge Summary Discharge Rx Participant: Yes New Discharge Prescriptions: New Docusate [Colace] 100 mg PO BID #20 capsule HYDROcodone/APAP 7.5-325MG [[place] 7.5-325] 1 tab PO Q4H PRN 3 Days #18 tab PRN Reason: Pain Continue Pravastatin Sodium [Pravachol] 20 mg PO HS Lisinopril [Zestril] 5 mg PO QAM Folic Acid 1 mg PO DAILY Cholecalciferol [Vitamin D3] 1,000 unit PO DAILY Methotrexate Sodium [Methotrexate] 25 mg PO TU Levothyroxine Sodium 125 mcg PO QAM Colestipol [Colestid] 10 gm PO DAILY Aspirin 81 mg PO DAILY Discharge Medication List Lisinopril [Zestril] 5 mg PO QAM 07/13/15 [History] Pravastatin Sodium [Pravachol] 20 mg PO HS 07/13/15 [History] Cholecalciferol [Vitamin D3] 1,000 unit PO DAILY 01/10/16 [History] Folic Acid 1 mg PO DAILY 01/10/16 [History] Methotrexate Sodium [Methotrexate] 25 mg PO TU 01/10/16 [History] Levothyroxine Sodium 125 mcg PO QAM 07/31/16 [History] Aspirin 81 mg PO DAILY 08/26/17 [History] Colestipol [Colestid] 10 gm PO DAILY 08/26/17 [History] Docusate [Colace] 100 mg PO BID #20 capsule 09/27/17 [Rx] HYDROcodone/APAP 7.5-325MG [[place] 7.5-325] 1 tab PO Q4H PRN 3 Days #18 tab 09/27 [Rx] Follow up Appointment(s)/Referral(s): Rasta Babin MD [STAFF PHYSICIAN] - 10/08/17 2:45 pm Activity/Diet/Wound Care/Special Instructions: Follow up with PCP in 1 week No tub bath for six weeks. Shower daily. No lifting over 10 pounds for the next 6 weeks. Not remove plastic surgical dressings until seen in the office visit. May use ice packs to surgical site. No driving while taking narcotic for pain. Eat 6 small meals daily low fiber diet Discharge Disposition: HOME SELF-CARE
[2017-10-01] MEDS ORDERED: METHOTREXATE SODIUM 2.5 MG TAB PO SCH (09:00)
== END 2017-09-30 14:15 | disposition home or self-care (01) | DRG 330 ==
LOC: 2ORMAIN 08:12 → 3SUR 11:44
PROVIDERS: ADMIT Surgery; ATTEND Surgery
PROC: 0DBU4ZZ Excision of Omentum, Percutaneous Endoscopic Approach (ICD-10-PCS; 2017-09-26)
PROC: 0DTF4ZZ Resection of Right Large Intestine, Percutaneous Endoscopic Approach (ICD-10-PCS; principal; 2017-09-26 10:10)
DX: K63.5 Polyp of colon (principal); E87.1 Hypo-osmolality and hyponatremia; M06.9 Rheumatoid arthritis, unspecified; I10 Essential (primary) hypertension; E78.5 Hyperlipidemia, unspecified; E03.9 Hypothyroidism, unspecified; E87.6 Hypokalemia; K21.9 Gastro-esophageal reflux disease without esophagitis; Z79.82 Long term (current) use of aspirin; Z79.899 Other long term (current) drug therapy; Z85.46 Personal history of malignant neoplasm of prostate; Z86.010 Personal history of colon polyps; Z79.890 Hormone replacement therapy
CPT/HCPCS: 80053; 85025; 86850; 86900; 86901; 88309

== ENCOUNTER 2018-09-15 06:38 | Day surgery (SDC) | payer MEDICARE ==
[2018-09-11 15:04] VITALS: BMI 23.0
[~2018-09-15 06:38] MED LIST changes: -DEXAMETHASONE SOD PHOSPHATE 10 MG/ML 1 ML VIAL IV ONE; -FAMOTIDINE 20 MG/2 ML VIAL IV PRN; -HEPARIN SODIUM,PORCINE 5,000 UNIT/ML 1 ML VIAL SQ ONE; -HYDROmorphone 0.5 MG/0.5 ML SYRINGE IVP PRN; +LACTATED RINGERS 1,000 ML IV SCH; -ONDANSETRON 4 MG/2 ML VIAL IVP ONE; -ceFAZolin IN SWFI 2 GM/20 ML SYRINGE IVP ONE; -metroNIDAZOLE-NS PMX 500 MG in SALINE 1 100ML.BAG IVPB ONE
[2018-09-15 07:21] VITALS: TEMP 97.2
[2018-09-15] MEDS ORDERED: LACTATED RINGERS 1,000 ML IV ONE (07:25)
[2018-09-15] MEDS ORDERED: PROPOFOL 10 MG/ML 20 ML VIAL IV ONE (07:41)
[2018-09-15] MEDS ORDERED: LIDOCAINE 1% INJ 10MG/ML (20 ML MDV) ONE (07:41)
--- NOTE | 2018-09-15 07:49 | P.GSHP ---
History of Present Illness H&P Date: 09/15/18 Chief Complaint: History of colon polyps This is a 73-year-old male who presents today for colonoscopy. Patient has history of colon polyps. He's had a previous right colectomy. Past Medical History Past Medical History: Cancer, GERD/Reflux, Hyperlipidemia, Hypertension, Prostate Disorder, Rheumatoid Arthritis (RA), Thyroid Disorder Additional Past Medical History / Comment(s): PROSTATE CANCER -BRACYTHERAPY SEEDS IMPLANTED (8-10 YRS AGO).,hx hiatal hernia History of Any Multi-Drug Resistant Organisms: None Reported Past Surgical History: Bowel Resection, Orthopedic Surgery, Tonsillectomy Additional Past Surgical History / Comment(s): COLONOSCOPY, RIGHT KNEE ARTHROSCOPY, BRACHYTHERAPY SEED IMPLANT , hiatal hernia repair, Past Anesthesia/Blood Transfusion Reactions: No Reported Reaction Additional Past Anesthesia/Blood Transfusion Reaction / Comment(s): FELT DIZZY AFTER ONE COLONOSCOPY Smoking Status: Never smoker - Past Family History Mother Family Medical History: No Reported History Brother(s) Family Medical History: Cancer Additional Family Medical History / Comment(s): liver Medications and Allergies Home Medications Medication Instructions Recorded Confirmed Type Lisinopril [Zestril] 5 mg PO QAM 07/13/15 09/11/18 History Pravastatin Sodium [Pravachol] 20 mg PO HS 07/13/15 09/11/18 History Folic Acid 1 mg PO DAILY 01/10/16 09/11/18 History Methotrexate Sodium [Methotrexate] 25 mg PO TU 01/10/16 09/11/18 History Levothyroxine Sodium 125 mcg PO QAM 07/31/16 09/11/18 History Aspirin 81 mg PO DAILY 08/26/17 09/11/18 History Colestipol [Colestid] 10 gm PO DAILY 08/26/17 09/11/18 History Allergies Allergy/AdvReac Type Severity Reaction Status Date / Time No Known Allergies Allergy Verified 09/11/18 14:55 Surgical - Exam Vital Signs Temp Pulse Resp BP Pulse Ox 97.2 F L 49 L 18 149/68 99 09/15/18 07:19 09/15/18 07:19 09/15/18 07:19 09/15/18 07:19 09/15/18 07:19 - General well developed, well nourished, no distress - Eyes PERRL - ENT normal pinna - Neck no masses - Respiratory normal expansion - Cardiovascular Rhythm: regular - Abdomen Abdomen: soft, non tender Assessment and Plan Assessment: History of colon polyps. We'll perform colonoscopy.
--- NOTE | 2018-09-15 08:02 | P.OP ---
Date of Procedure: 09/15/18 Preoperative Diagnosis: History of colon polyps Postoperative Diagnosis: External hemorrhoids Normal colonoscopy status post right colectomy Procedure(s) Performed: Colonoscopy Anesthesia: MAC Surgeon: Rasta Babin Pathology: none sent Condition: stable Disposition: PACU Description of Procedure: The patient's placed on the endoscopy table in the lateral position. He received IV sedation. Digital rectal exam was performed which revealed external hemorrhoids. Prostate was symmetric without nodules. The flexible colonoscope was then placed patient anus passed throughout the entire colon. A shunt had a previous ileocolectomy. The ileocolonic anastomosis was visualized's. The transverse colon, descending colon and sigmoid colon appeared normal. The scope was then brought back the rectum and this was normal. Scope was withdrawn for patient.
[2018-09-15 08:09] VITALS: RESP 16
[2018-09-15 08:26] VITALS: BP 123/72; PULSE 64
== END 2018-09-15 08:35 | disposition home or self-care (01) ==
LOC: ORWHC2ENDO 06:38
PROVIDERS: ATTEND Surgery
DX: Z86.010 Personal history of colon polyps (principal); E07.9 Disorder of thyroid, unspecified; E78.5 Hyperlipidemia, unspecified; I10 Essential (primary) hypertension; K21.9 Gastro-esophageal reflux disease without esophagitis; K44.9 Diaphragmatic hernia without obstruction or gangrene; K64.4 Residual hemorrhoidal skin tags; M06.9 Rheumatoid arthritis, unspecified; Z79.82 Long term (current) use of aspirin; Z85.46 Personal history of malignant neoplasm of prostate; Z90.49 Acquired absence of other specified parts of digestive tract; Z79.899 Other long term (current) drug therapy; Z79.890 Hormone replacement therapy
CPT/HCPCS: 45378; J2001; J2704

== ENCOUNTER → 2020-11-12 | Outpatient (CLI) | payer MEDICARE ==
--- NOTE | 2020-11-12 09:50 | MR ---
EXAMINATION TYPE: MR knee LT wo con DATE OF EXAM: 11/12/2020 COMPARISON: Outside left knee x-ray October 18, 2020 HISTORY: Left knee pain with swelling and locking for 4 months. TECHNIQUE: Multiplanar, multisequence imaging of the left knee is performed without IV contrast. FINDINGS: MEDIAL MENISCUS: Posterior horn medial meniscus is truncated with abnormal irregular signal extending to inferior articular surface and central body. LATERAL MENISCUS: Marked abnormal signal lateral meniscus involving anterior and posterior horns with extension to articular surfaces suspected. CRUCIATE LIGAMENTS: The posterior cruciate ligament is intact. Anterior cruciate ligament shows marke d abnormal signal and fraying of fibers. COLLATERAL LIGAMENTS: The medial collateral ligament and lateral collateral ligament complex are inta ct and unremarkable. EXTENSOR MECHANISM: Visualized quadriceps and patellar tendons are intact. EFFUSION: Moderate to large size suprapatellar joint effusion with increased signal or synovitis. POPLITEAL CYST: Moderate to large sized multi septated popliteal/rajan cyst. TRICOMPARTMENT SPACES: Moderate tricompartment joint space loss. No significant spurring. CARTILAGE: Tricompartment articular cartilage fairly well-preserved BONE MARROW SIGNAL: Heterogeneity consistent with red marrow reconversion. No suspicious focal edema. OTHER: Posterior capsular distention. IMPRESSION: 1. Complex full-thickness tear posterior horn medial meniscus extending into central body. 2. At least intrasubstance tear throughout the entire lateral meniscus, areas of full thickness tear felt present. 3. Abnormal ACL, significant tearing, essentially full thickness tear. 4. Moderate to large-sized suprapatellar joint effusion with synovitis. 5. Moderate to large size multiseptated popliteal cyst. 6. Mild to moderate tricompartment degenerative changes.
== END | disposition home or self-care (01) ==
LOC: RADMRIMAIN 08:45
PROVIDERS: ATTEND Orthopaedic Surgery
DX: M23.222 Derangement of posterior horn of medial meniscus due to old tear or injury, left knee (principal); M23.232 Derangement of other medial meniscus due to old tear or injury, left knee; M23.612 Other spontaneous disruption of anterior cruciate ligament of left knee

== ENCOUNTER → 2020-11-22 | Outpatient (CLI) | payer MEDICARE ==
[2020-11-22 08:13] LABS: Basophils % (A) 1 %; Eosinophils # (A) 0.2 k/uL (0-0.7); Eosinophils % (A) 4 %; HCT 39.8 % (39.0-53.0); HGB 13.5 gm/dL (13.0-17.5); Lymphocytes # (A) 1.2 k/uL (1.0-4.8); Lymphocytes % (A) 26 %; MCH 34.6 pg (25.0-35.0); MCHC 33.9 g/dL (31.0-37.0); MCV 101.9 fL (80.0-100.0); Macrocytosis Slight; Mean Platelet Volume 8.4; Monocytes # (A) 0.3 k/uL (0-1.0); Monocytes % (A) 7 %; Neutrophils # (A) 2.8 k/uL (1.3-7.7); Neutrophils % (A) 59 %; Platelet Count 261 k/uL (150-450); RBC 3.91 m/uL (4.30-5.90); WBC 4.7 k/uL (3.8-10.6)
[2020-11-22 08:44] LABS: Potassium 4.9 mmol/L (3.5-5.1)
== END | disposition home or self-care (01) ==
LOC: LABPAT 07:55
PROVIDERS: ATTEND Orthopaedic Surgery
DX: Z01.818 Encounter for other preprocedural examination (principal); M23.92 Unspecified internal derangement of left knee; R00.1 Bradycardia, unspecified
CPT/HCPCS: 36415; 80051; 85025; 93005

== ENCOUNTER 2020-11-25 08:19 | Day surgery (SDC) | payer MEDICARE ==
[2020-11-22 15:53] VITALS: BMI 22.6
[2020-11-25 08:54] VITALS: TEMP 97.4
[2020-11-25] MEDS: LACTATED RINGERS 1,000 ML IV SCH ×2 (08:54→09:17)
--- NOTE | 2020-11-25 09:09 | P.GSHP ---
History of Present Illness H&P Date: 11/25/20 Chief Complaint: History of colon polyps This a 75 male with history of colon polyps. Patient rents today for colonoscopy. Past Medical History Past Medical History: Cancer, Hyperlipidemia, Hypertension, Osteoarthritis (OA), Prostate Disorder, Rheumatoid Arthritis (RA), Thyroid Disorder Additional Past Medical History / Comment(s): PROSTATE CANCER -BRACYTHERAPY SEEDS IMPLANTED (10 YRS AGO)., bowel resection for mult polyps History of Any Multi-Drug Resistant Organisms: None Reported Past Surgical History: Bowel Resection, Orthopedic Surgery, Tonsillectomy Additional Past Surgical History / Comment(s): COLONOSCOPY, RIGHT KNEE ARTHROSCOPY, BRACHYTHERAPY SEED IMPLANT , hiatal hernia repair, Past Anesthesia/Blood Transfusion Reactions: No Reported Reaction Additional Past Anesthesia/Blood Transfusion Reaction / Comment(s): . Smoking Status: Never smoker - Past Family History Mother Family Medical History: No Reported History Brother(s) Family Medical History: Cancer Additional Family Medical History / Comment(s): liver Medications and Allergies Home Medications Medication Instructions Recorded Confirmed Type Pravastatin Sodium [Pravachol] 20 mg PO 07/13/15 11/22/20 History lisinopriL [Zestril] 5 mg PO QA 07/13/15 11/22/20 History Folic Acid 1 mg PO DAILY 01/10/16 11/22/20 History metHOTREXate sodium [Methotrexate] 20 mg PO 01/10/16 11/22/20 History Levothyroxine Sodium 125 mcg PO QAM 07/31/16 11/22/20 History Aspirin 81 mg PO DAILY 08/26/17 11/22/20 History Colestipol [Colestid] 10 gm PO 08/26/17 11/22/20 History Cholecalciferol [Vitamin D3 (25 25 mcg PO DAILY 11/22/20 11/22/20 History Mcg = 1000 Iu)] Allergies Allergy/AdvReac Type Severity Reaction Status Date / Time No Known Allergies Allergy Verified 11/22/20 15:40 Surgical - Exam Vital Signs Temp Pulse Resp BP Pulse Ox 97.4 F L 62 18 140/70 95 11/25/20 08:52 11/25/20 08:52 11/25/20 08:52 11/25/20 08:52 11/25/20 08:52 - General well developed, well nourished, no distress - Eyes PERRL - ENT normal pinna - Neck no masses - Respiratory normal expansion - Cardiovascular Rhythm: regular - Abdomen Abdomen: soft, non tender Assessment and Plan Assessment: We'll perform colonoscopy.
[2020-11-25] MEDS ORDERED: PROPOFOL 10 MG/ML 20 ML VIAL IV ONE (09:19)
--- NOTE | 2020-11-25 09:35 | P.OP ---
Date of Procedure: 11/25/20 Preoperative Diagnosis: History of colon polyps Postoperative Diagnosis: Colon polyp Procedure(s) Performed: Colonoscopy Anesthesia: MAC Surgeon: Rasta Babin Pathology: other (Right colon polyp) Condition: stable Disposition: PACU Description of Procedure: Patient's placed on the endoscopy table in the lateral position. He received IV sedation. Digital rectal exam was performed which revealed no abnormalities. Flexible colonoscope was then placed patient anus passed rotator entire colon. Patient a previous right colectomy. The ileocolonic vessels was visualized. In the remaining right colon there is a small sessile polyp was removed with a cold forcep. Scope was then brought back the transverse colon, descending colon and sigmoid colon appeared normal. Scope was then brought back the rectum and this appeared normal. Scope was withdrawn for patient.
[2020-11-25 09:46] VITALS: RESP 16
[2020-11-25 09:56] VITALS: BP 121/77; PULSE 50
== END 2020-11-25 10:08 | disposition home or self-care (01) ==
LOC: ORWHC2ENDO 08:19
PROVIDERS: ATTEND Surgery
DX: Z12.11 Encounter for screening for malignant neoplasm of colon (principal); K63.5 Polyp of colon; Z90.49 Acquired absence of other specified parts of digestive tract; E78.5 Hyperlipidemia, unspecified; I10 Essential (primary) hypertension; M19.90 Unspecified osteoarthritis, unspecified site; M06.9 Rheumatoid arthritis, unspecified; Z85.46 Personal history of malignant neoplasm of prostate; E07.9 Disorder of thyroid, unspecified; Z98.890 Other specified postprocedural states; Z92.3 Personal history of irradiation; Z80.0 Family history of malignant neoplasm of digestive organs; Z79.82 Long term (current) use of aspirin; Z79.899 Other long term (current) drug therapy
CPT/HCPCS: 88305; 45380; J2704

== ENCOUNTER 2020-12-01 12:14 | Day surgery (SDC) | payer MEDICARE ==
[2020-11-30 08:39] VITALS: BMI 22.3
--- NOTE | 2020-11-30 18:22 | HP ---
HISTORY AND PHYSICAL REASON FOR ADMISSION: Surgery is scheduled for 12/01/2020 HISTORY OF PRESENT ILLNESS: Shai Valente is a 75-year-old gentleman seen with progressive left knee pain. We discussed options for treatment. He elected to proceed with arthroscopy. Consent was obtained. PAST MEDICAL HISTORY: Hyperlipidemia, hypertension, hypothyroidism. PAST SURGICAL HISTORY: Knee arthroscopy. Colon resection surgery. DAILY MEDICATIONS: Levothyroxine, lisinopril, pravastatin, methotrexate. ALLERGIES: NONE. SOCIAL HISTORY: Denies tobacco use. PHYSICAL EVALUATION OF THE LEFT KNEE: Range of motion is -4/5-90. Mild effusion. Tenderness medial joint line. Positive medial Raul's. Medial and patellofemoral crepitus on range of motion. Ligaments stable. Hip rotation without pain. Distal neurovascular exam intact. RADIOGRAPHS: Radiographs of the left knee reveal moderate osteoarthritis. MRI left knee revealed a complex medial meniscal tear, possible lateral meniscal tear. ACL tear and effusion. IMPRESSION: 1. Internal derangement of left knee with meniscal tear. 2. Hypertension. 3. Hyperlipidemia. 4. Hypothyroidism. PLAN: Left knee arthroscopy with partial meniscectomy and debridement. Surgery scheduled for 12/01/2020. MMODL / IJN: [id number] /
[~2020-12-01 12:14] MED LIST changes: +DEXAMETHASONE SOD PHOSPHATE 4 MG/ML 1 ML VIAL IV ONE; +LIDOCAINE 1% (10MG/ML) FOR IV START INTRADERMA PRN; -LIDOCAINE 1% 20 ML VIAL (10MG/ML) FOR IV START INTRADERMA PRN; +MIDAZOLAM 2 MG/2 ML VIAL IV PRN; +ONDANSETRON 4 MG/2 ML VIAL IVP ONE
[2020-12-01] MEDS ORDERED: LIDOCAINE 1% INJ 10MG/ML (20 ML MDV) ONE (14:29)
[2020-12-01] MEDS ORDERED: fentaNYL (PF) 50 MCG/ML 2 ML AMP ONE (14:29)
[2020-12-01] MEDS ORDERED: KETOROLAC 15 MG/ML 1 ML VIAL ONE (14:29)
[2020-12-01] MEDS ORDERED: MIDAZOLAM 2 MG/2 ML VIAL ONE (14:29)
[2020-12-01] MEDS ORDERED: PROPOFOL 10 MG/ML 20 ML VIAL IV ONE (14:29)
[2020-12-01] MEDS ORDERED: BUPIVACAINE (PF) 0.25% 30 ML VIAL SQ ONE ×2 (14:40→15:10)
--- NOTE | 2020-12-01 15:24 | P.OP ---
Date of Procedure: 12/01/20 Preoperative Diagnosis: Internal derangement left knee Postoperative Diagnosis: 1. Tear lateral meniscus left 2. Reactive synovitis medial, lateral and suprapatellar compartments left knee Procedure(s) Performed: 1. Arthroscopic partial lateral meniscectomy left knee 2. Arthroscopic partial synovectomy medial, lateral and suprapatellar compartments left knee Anesthesia: KATHERINE, local Surgeon: Lincoln Mcmillan Estimated Blood Loss (ml): 11 Pathology: none sent Condition: stable Disposition: PACU Indications for Procedure: 75-year-old gentleman seen with progressive left knee pain. After treatment options were discussed, he elected to proceed with arthroscopy. Operative Findings: See description of procedure Description of Procedure: Patient was taken to the operative suite. Patient underwent a general anestheti c by the department of anesthesia. Patient was given preoperative antibiotics. The left lower extremity was placed in a well-padded arthroscopic leg gastelum. The left leg was prepped and draped in the normal sterile orthopedic fashion. A lateral parapatellar and suprapatellar incision was made. Trochars were inserted. Arthroscopy was initiated. Suprapatellar pouch revealed diffuse thick reactive synovitis. The patellofemoral joint appeared to articulate congruently. There was grade 1 chondromalacia of the patella with no significant tears. The scope was guided into the medial gutter. No loose bodies or plica were identified. The scope was then guided into the medial compartment. A medial parapatellar incision was made. Trocar inserted followed by probe. There was some superficial fraying posterior horn medial meniscus. There were grade 1 chondromalacia changes of the medial femoral condyle with no significant tears present. There was thick reactive synovitis anteriorly. I debrided that superficial fraying of the posterior horn medial meniscus. I performed a partial synovectomy decompressing reactive synovitis. The shaver was removed. There was good decompression of synovitis. Scope and probe were then guided into the intercondylar notch. Cruciates were identified, probed and found to be table. The scope and probe were then guided into lateral compartment. There was a complex tear involving the posterior horn and midbody of the lateral meniscus. Were grade 1 chondromalacia changes of the lateral compartment approaching 2 with no osteochondral tears. There was thick reactive synovitis anteriorly. I performed a partial lateral meniscectomy getting down to stable meniscal tissue. I performed a partial synovectomy decompressing the thick reactive synovitis. The shaver was removed. The residual meniscus was stable. There was good decompression of the synovitis. The scope was in guided back into the suprapatellar compartment. I introduced a motorized shaver into the suprapatellar compartment. I debrided some piecemeal fragments of meniscus I encountered. I performed a partial synovectomy decompressing reactive synovitis. Shaver was removed. There was good decompression of synovitis. I took one more look around the entire knee, no residual debris. Instruments were now removed from the joint. The joint was infiltrated with .25% Marcaine. Steri-Strips were applied to the portal sites. Sterile dressings were applied. The patient was placed into a ARISTIDES hose. No tourniquet was utilized. The patient was awakened, transferred to a bed and taken to recovery stable satisfactory condition.
[2020-12-01 15:28] VITALS: TEMP 36.5
[2020-12-01 15:36] VITALS: RESP 16
[2020-12-01] MEDS: HYDROmorphone 0.5 MG/0.5 ML SYRINGE IVP PRN ×2 (15:39→15:49)
[2020-12-01 16:31] VITALS: BP 134/73; PULSE 68
== END 2020-12-01 16:50 | disposition home or self-care (01) ==
LOC: OR 12:14
PROVIDERS: ATTEND Orthopaedic Surgery
DX: S83.282A Other tear of lateral meniscus, current injury, left knee, initial encounter (principal); E78.5 Hyperlipidemia, unspecified; I10 Essential (primary) hypertension; E03.9 Hypothyroidism, unspecified; M19.90 Unspecified osteoarthritis, unspecified site; Z79.890 Hormone replacement therapy; Z79.82 Long term (current) use of aspirin; Z79.899 Other long term (current) drug therapy
CPT/HCPCS: 29881; J1100; J2405; J0690; J2001; J1885; J2704; J1170

== ENCOUNTER → 2021-10-10 | Outpatient (CLI) | payer MEDICARE | END | disposition home or self-care (01) | LOC: LABPAT 11:05 | PROVIDERS: ATTEND Orthopaedic Surgery | DX: Z01.812 Encounter for preprocedural laboratory examination (principal); M17.12 Unilateral primary osteoarthritis, left knee; Z22.322 Carrier or suspected carrier of Methicillin resistant Staphylococcus aureus | CPT/HCPCS: 87070 ==

== ENCOUNTER 2021-11-20 08:12 | Day surgery (SDC) | payer MEDICARE ==
[2021-11-16 13:30] VITALS: BMI 22.3
--- NOTE | 2021-11-20 00:36 | HP ---
HISTORY AND PHYSICAL DATE OF SURGERY: 11/20/2021. HISTORY OF PRESENT ILLNESS: Shai Valente is a 76-year-old gentleman, seen with symptomatic left knee osteoarthritis. We discussed options for treatment. He elected to proceed with left total knee arthroplasty. Consent was obtained. Medical clearance was provided. PAST MEDICAL HISTORY: Hypothyroidism, hypertension, hyperlipidemia. SURGICAL HISTORY: Knee arthroscopy, colon resection surgery. DAILY MEDICATIONS: 1. Aspirin. 2. Levothyroxine. 3. Lisinopril. 4. Methotrexate. 5. Pravastatin. ALLERGIES: None. SOCIAL HISTORY: Denies tobacco use. PHYSICAL EVALUATION OF THE LEFT KNEE: His range of motion is negative 2/3 to 80 degrees. Tenderness along the medial and lateral joint lines. Crepitus, medial patellofemoral compartments with range of motion. Pain with patellofemoral compression. Ligaments stable. Distal neurovascular exam is intact. RADIOGRAPHS: Left knee radiographs reveal severe osteoarthritic changes. IMPRESSION: 1. Left knee osteoarthritis. 2. Hypertension. 3. Hyperlipidemia. 4. Hypothyroidism. PLAN: Left total knee arthroplasty. MMODL / IJN: [id number] /
[~2021-11-20 08:12] MED LIST changes: +ACETAMINOPHEN TAB 500 MG TAB PO PRN; +MELOXICAM 7.5 MG TAB PO PRN; -MIDAZOLAM 2 MG/2 ML VIAL IV PRN; +TRANEXAMIC ACID IN NACL,ISO-OS 1,000 MG in SALINE 1 100ML.BAG IVPB PRN
[2021-11-20 08:53] VITALS: RESP 16
[2021-11-20 09:19] LABS: Glucose,Whole Blood 102 mg/dL (70-110)
[2021-11-20] MEDS: MIDAZOLAM 2 MG/2 ML VIAL IV PRN ×2 (09:36→09:39)
[2021-11-20] MEDS ORDERED: ePHEDrine 50 MG/ML 1 ML VIAL ONE (09:58)
[2021-11-20] MEDS ORDERED: TRANEXAMIC ACID IN NACL,ISO-OS 1,000 MG/100 ML BAG ONE (09:58)
[2021-11-20] MEDS ORDERED: PROPOFOL 10 MG/ML 20 ML VIAL IV ONE (09:58)
[2021-11-20] MEDS ORDERED: fentaNYL (PF) 50 MCG/ML 2 ML AMP ONE (09:58)
[2021-11-20] MEDS ORDERED: SODIUM CHLORIDE 0.9% (PF) 10 ML VIAL ONE (09:58)
[2021-11-20] MEDS ORDERED: LIDOCAINE 2% INJ 20 MG/ML (2 ML VIAL) ONE (09:58)
[2021-11-20] MEDS ORDERED: SUCCINYLCHOLINE CHLORIDE 200 MG/10 ML VIAL IV ONE (09:58)
[2021-11-20] MEDS ORDERED: ROPIVACAINE 5 MG/ML 30 ML VIAL ONE (09:58)
[2021-11-20] MEDS ORDERED: HYDROmorphone (PF) 1 MG/ML ONE (09:58)
[2021-11-20] MEDS ORDERED: ceFAZolin 1,000 MG in SODIUM CHLORIDE 0.9% 1,000 ML IRRIGATION ONE (10:30)
[2021-11-20] MEDS ORDERED: ONDANSETRON 4 MG/2 ML VIAL IVP PRN (11:36)
[2021-11-20] MEDS ORDERED: HYDROcodone/APAP 5-325MG 1 EACH TAB PO PRN (11:36)
[2021-11-20] MEDS ORDERED: HYDROmorphone 0.5 MG/0.5 ML SYRINGE IVP PRN ×3 (11:36)
[2021-11-20] MEDS ORDERED: HYDROcodone/APAP 7.5-325MG 1 EACH TAB PO PRN (11:36)
[2021-11-20] MEDS ORDERED: LACTATED RINGERS 1,000 ML IV ONE ×2 (11:36→11:50)
[2021-11-20] MEDS ORDERED: NALOXONE 0.4 MG/ML 1 ML VIAL IV PRN (11:36)
--- NOTE | 2021-11-20 11:36 | P.OP ---
Date of Procedure: 11/20/21 Preoperative Diagnosis: Left knee osteoarthritis Postoperative Diagnosis: Left knee osteoarthritis Procedure(s) Performed: Left total knee arthroplasty Implants: 1. Depuy attune size 7 cruciate retaining left cemented femur 2. Depuy attune size 7 cruciate retaining cemented tibial baseplate 3. Depuy attune size 7 fixed bearing cruciate retaining 5 mm polyethylene tibial insert 4. Depuy attune 41 mm all polyethylene cemented patella Anesthesia: GETA, regional (Adductor canal catheter, Ipack block) Surgeon: Lincoln Mcmillan Hospice Liaison #1: Buzz Taylor Estimated Blood Loss (ml): 50 Pathology: other (Bone) Condition: stable Disposition: PACU Indications for Procedure: 76-year-old patient seen with symptomatic left knee osteoarthritis. After having treatment options discussed, he elected to proceed with total knee arthroplasty. Operative Findings: See description of procedure Description of Procedure: Patient was taken to the operative suite after having an adductor canal catheter placed by the department of anesthesia as well as an Ipack block for postoperative pain management. Patient underwent a general anesthetic by the department of anesthesia. Patient was given preoperative IV intake antibiotics and TXA. A well-padded tourniquet was placed about the left lower extremity. The lower extremity was then prepped and draped in the normal sterile orthopedic fashion. The extremity was elevated, a tourniquet was insufflated to 300. A standard anterior incision was made sharply through skin. Dissection was taken down through the subcutaneous soft tissues down to the extensor mechanism. A medial arthrotomy was performed, patella was everted and knee was flexed. There was advanced osteoarthritis noted. I introduced my distal intramedullary femoral drill. I then introduced the distal femoral cutting jig. Kaz CANO secured the cutting jig with 2 pins. I held retractors in position while Kaz CANO performed the distal femoral resection through the guide area we now removed her distal femoral cutting guide. We now placed our 4-in-1 femoral cutting block and positioned and it was secured with 2 pins by Kaz CANO while I held the block in position. The distal femoral finishing was now completed. A proximal tibial cutting guide was positioned. I held the guide in the appropriate position with both hands well Kaz CANO inserted stabilizing pins into the guide. Proximal tibial cut was made. We now placed a trial femoral component into position, along with an appropriate size tibial tray and insert. We now took the knee through range of motion and had full extension good flexion and good overall soft tissue balance noted. The patella was everted and stabilized with 2 towel clips held by Kaz CANO while I performed a flush with patellar quad tendon utilizing a fresh sawblade. We templated the patella, appropriate drill holes were made. An appropriate trial patella was positioned, knee was taken through full range of motion with the patella tracking very nicely. The trial patella was removed. Drill holes were made through the femoral component. All trial components were removed after marking off the appropriate rotation of the tibia. Retractors were now positioned along the proximal tibia. An appropriate keel punch was made with the appropriate size tibial guide by myself on Kaz CANO assisted by holding retractors. At this point appropriate size implants were chosen and opened. The joint was irrigated copiously with pulse lavage mechanical irrigation. The posterior capsule was infiltrated with local analgesic. The wound was irrigated with pulse lavage mechanical irrigation. We mixed antibiotic methylmethacrylate. We placed the knee into flexion. We placed m ultiple retractors assisted by Kaz CANO to expose the proximal tibia. Once the methyl methacrylate was ready, the tibial component was cemented into place removing any excess methylmethacrylate form by both myself and Kaz CANO. The femoral component was cemented into place removing the removing any excess methylmethacrylate performed by both myself and Kaz CANO. We then inserted the appropriate size polyethylene tibial insert. We made sure that it was locked into position. We took the knee into full extension, and then back in a flexion making sure we had removed any excess methylmethacrylate. The patellar component was then cemented down and secured with clamp. Excess methylmethacrylate removed. We kept the knee in full extension, patellar clamp in position until methylmethacrylate had hardened. Once it had hardened the patellar clamp was removed. The knee was taken through full range of motion. The patella tracked nicely. There was good soft tissue balancing. The tourniquet was now released. Additional hemostasis was achieved via electrocautery. A second gram of TXA was given. The wound again was irrigated with pulse lavage mechanical irrigation. The superficial soft tissues were infiltrated local analgesic. The extensor mechanism was repaired with Ethibond suture. We checked the repair with range of motion and it was stable. The subcutaneous soft tissues were repaired with Vicryl in layers. The skin was approximated with pernio/Dermabond. Sterile dressings were applied followed by loose web roll and Oskar bandage. The patient was transferred to a bed, and taken to recovery in stable and satisfactory condition. Kaz CANO assisted with this complex procedure.
[2021-11-20 12:09] VITALS: TEMP 97.1
[2021-11-20] MEDS ORDERED: ROPIVACAINE 0.2%-NS ON-Q PUMP 2 MG/ML EACH MISCELLANE ONE (12:22)
[2021-11-20] MEDS: HYDROmorphone 0.5 MG/0.5 ML SYRINGE IVP PRN ×3 (12:25→12:52)
--- NOTE | 2021-11-20 12:59 | XR ---
EXAMINATION TYPE: XR knee limited LT DATE OF EXAM: 11/20/2021 COMPARISON: 08/22/2021 HISTORY: 76-year-old male evaluation for postoperative abnormality in alignment, postop left knee. TECHNIQUE: 2 views FINDINGS: Images show placement of left total knee arthroplasty. Both distal femoral and proximal tib ial components of the prosthesis are well seated without periprosthetic fracture. Alignment grossly a natomic. Anterior soft tissue swelling with scattered soft tissue air as well as intra-articular air related to recent operation. Vascular calcifications are noted. There is a broad-based sessile osteoc hondroma noted along the lateral aspect of the distal femoral metadiaphysis. IMPRESSION: Uncomplicated postoperative appearance left total knee arthroplasty. Underlying sessile osteochondrom a laterally distal femoral metadiaphysis.
--- NOTE | 2021-11-20 13:31 | P.ANPRN ---
Procedure Note - Anesthesia - Nerve Block Performed Left Adductor Canal Time Out Performed: Yes (:35) Date of Procedure: 11/20/21 Procedure Start Time: Procedure Stop Time: Location of Patient: PreOp Indication: Acute Post-Operative Pain, Requested by Surgeon (Dr Mcmillan) Sedation Type: Sedate with meaningful contact maintained Preparation: Sterile Prep, Sterile Dressing Position: Supine Catheter: Indwelling Needle Types: Pajunk Needle Gauge: 21 Ultrasound used to visualize needle placement: Yes Ultrasound used to observe medication spread: Yes Injectate: 0.5% Ropivacaine (see comment for volume) (15cc) Blood Aspirated: No Pain Paresthesia on Injection Noted: No Resistance on Injection: Normal Image Stored and Saved: Yes Events: Uneventful and Well Tolerated
--- NOTE | 2021-11-20 13:33 | P.ANPRN ---
Procedure Note - Anesthesia - Nerve Block Performed Left iPack Time Out Performed: Yes Date of Procedure: 11/20/21 Procedure Start Time: 09:45 Procedure Stop Time: 09:51 Location of Patient: PreOp Indication: Acute Post-Operative Pain, Requested by Surgeon (Dr Mcmillan) Sedation Type: Sedate with meaningful contact maintained Preparation: Sterile Prep Position: Supine Catheter: None Needle Types: Pajunk Needle Gauge: 21 Ultrasound used to visualize needle placement: Yes Ultrasound used to observe medication spread: Yes Injectate: 0.5% Ropivacaine (see comment for volume) (15cc + 5cc PF Normal saline) Blood Aspirated: No Pain Paresthesia on Injection Noted: No Resistance on Injection: Normal Image Stored and Saved: Yes Events: Uneventful and Well Tolerated
[2021-11-20 14:23] VITALS: BP 133/91; PULSE 71
== END 2021-11-20 15:55 | disposition home health service (06) ==
LOC: OR 08:12
PROVIDERS: ATTEND Orthopaedic Surgery
DX: M17.12 Unilateral primary osteoarthritis, left knee (principal); G89.18 Other acute postprocedural pain; E03.9 Hypothyroidism, unspecified; I10 Essential (primary) hypertension; E78.5 Hyperlipidemia, unspecified; E07.9 Disorder of thyroid, unspecified; K21.9 Gastro-esophageal reflux disease without esophagitis; Z98.890 Other specified postprocedural states; Z90.49 Acquired absence of other specified parts of digestive tract
CPT/HCPCS: 27447; 97110; 97161; 64999; 64448; 76942; 88300; 73560; C1776; C1713 ×2; J2250; J0330; J1100; J0690 ×2; J2405; J3010; J1170 ×2; J2795 ×2; J2704; J2001

== ENCOUNTER 2022-12-06 06:36 | Day surgery (SDC) | payer MEDICARE ==
[2022-12-06] MEDS ORDERED: ONDANSETRON 4 MG/2 ML VIAL IVP PRN (07:04)
[2022-12-06] MEDS ORDERED: LACTATED RINGERS 1,000 ML IV SCH (07:04)
[2022-12-06] MEDS ORDERED: LIDOCAINE 1% (10MG/ML) FOR IV START INTRADERMA PRN (07:04)
[2022-12-06] MEDS ORDERED: LACTATED RINGERS 1,000 ML IV ONE (07:05)
[2022-12-06 07:16] VITALS: RESP 16; TEMP 97.3
[2022-12-06] MEDS ORDERED: GLYCOPYRROLATE 0.2 MG/ML 2 ML VIAL ONE (07:33)
[2022-12-06] MEDS ORDERED: PROPOFOL 10 MG/ML 20 ML VIAL IV ONE (07:33)
[2022-12-06] MEDS ORDERED: LIDOCAINE 2% INJ 20 MG/ML (2 ML VIAL) ONE (07:33)
--- NOTE | 2022-12-06 07:36 | P.GSHP ---
History of Present Illness H&P Date: 12/06/22 Chief Complaint: Screening colonoscopy This a 77-year-old male presents today for screening colonoscopy. Patient denies a significant GI complaints. Past Medical History Past Medical History: Cancer, GERD/Reflux, Hyperlipidemia, Hypertension, Osteoarthritis (OA), Prostate Disorder, Rheumatoid Arthritis (RA), Thyroid Disorder Additional Past Medical History / Comment(s): PROSTATE CANCER -BRACYTHERAPY SEEDS IMPLANTED (10 YRS AGO)., bowel resection for mult polyps., History of Any Multi-Drug Resistant Organisms: None Reported Past Surgical History: Bowel Resection, Joint Replacement, Orthopedic Surgery, Tonsillectomy Additional Past Surgical History / Comment(s): COLONOSCOPY, RIGHT KNEE ARTHROSCOPY, BRACHYTHERAPY SEED IMPLANT , Bowel resection with hiatal hernia repair, left total knee, Past Anesthesia/Blood Transfusion Reactions: No Reported Reaction Additional Past Anesthesia/Blood Transfusion Reaction / Comment(s): . Smoking Status: Never smoker - Past Family History Brother(s) Family Medical History: Cancer Additional Family Medical History / Comment(s): liver Medications and Allergies Home Medications Medication Instructions Recorded Confirmed Type Pravastatin Sodium [Pravachol] 20 mg PO HS 07/13/15 12/06/22 History lisinopriL [Zestril] 5 mg PO QAM 07/13/15 12/06/22 History Folic Acid 1 mg PO DAILY 01/10/16 12/06/22 History metHOTREXate sodium 20 mg PO MO 01/10/16 12/06/22 History Levothyroxine Sodium 125 mcg PO QAM 07/31/16 12/06/22 History Colestipol [Colestid] 10 gm PO HS 08/26/17 12/06/22 History Cholecalciferol [Vitamin D3 (25 25 mcg PO DAILY 11/22/20 12/06/22 History Mcg = 1000 Iu)] Multivit-Min/Folic/Vit K/Lycop 1 each PO DAILY 11/16/21 12/06/22 History [Men's Multivitamin Tablet] Aspirin [Adult Low Dose Aspirin EC] 81 mg PO BID #60 tab 11/20/21 12/06/22 Rx Allergies Allergy/AdvReac Type Severity Reaction Status Date / Time No Known Allergies Allergy Verified 12/06/22 07:11 Surgical - Exam Vital Signs Temp Pulse Resp BP Pulse Ox 97.3 F L 55 L 16 133/67 97 12/06/22 07:07 12/06/22 07:07 12/06/22 07:07 12/06/22 07:07 12/06/22 07:07 - General well developed, well nourished, no distress - Eyes PERRL - ENT normal pinna - Neck no masses - Respiratory normal expansion - Cardiovascular Rhythm: regular - Abdomen Abdomen: soft, non tender Assessment and Plan Assessment: We'll perform screening colonoscopy. Time with Patient: Greater than 30
--- NOTE | 2022-12-06 07:47 | P.OP ---
Date of Procedure: 12/06/22 Preoperative Diagnosis: Screening colonoscopy Postoperative Diagnosis: External hemorrhoids Procedure(s) Performed: Colonoscopy Anesthesia: MAC Surgeon: Rasta Babin Pathology: none sent Condition: stable Disposition: PACU Description of Procedure: The patient's placed on the the hospital table in the lateral position. He received IV sedation. Digital rectal exam was performed. This revealed external hemorrhoids. The flexible colonoscope was then placed patient anus and passed throughout the entire colon. The ileocecal valve was visualized. Cecum, ascending and transverse colon appeared normal. The descending and sigmoid colon appeared normal. Scope was brought back the rectum and this appeared normal. Scope withdrawn through the anus and external and internal hemorrhoids were noted. The withdrawn for patient.
[2022-12-06 08:05] VITALS: BP 121/73; PULSE 61
== END 2022-12-06 08:45 | disposition home or self-care (01) ==
LOC: ORWHC2ENDO 06:36
PROVIDERS: ATTEND Surgery
DX: Z12.11 Encounter for screening for malignant neoplasm of colon (principal); K64.4 Residual hemorrhoidal skin tags; I10 Essential (primary) hypertension; E78.5 Hyperlipidemia, unspecified; K21.9 Gastro-esophageal reflux disease without esophagitis; M06.9 Rheumatoid arthritis, unspecified; E07.9 Disorder of thyroid, unspecified; Z85.46 Personal history of malignant neoplasm of prostate; Z90.89 Acquired absence of other organs; Z79.899 Other long term (current) drug therapy; Z98.890 Other specified postprocedural states; Z79.890 Hormone replacement therapy; Z79.82 Long term (current) use of aspirin
CPT/HCPCS: J2704; J2001; G0121

== ENCOUNTER → 2023-05-15 | Outpatient (CLI) | payer MEDICARE ==
[2023-05-15 17:00] LABS: Basophils # (A) 0.03 X 10*3/uL (0.00-0.10); Basophils % (A) 0.6 %; Eosinophils # (A) 0.18 X 10*3/uL (0.04-0.35); Eosinophils % (A) 3.4 %; HCT 39.1 % (39.6-50.0); HGB 13.4 g/dL (13.0-17.0); Lymphocytes # (A) 1.15 X 10*3/uL (0.90-5.00); Lymphocytes % (A) 21.9 %; MCHC 34.3 g/dL (32.0-37.0); MCV 99.2 FL (80.0-97.0); Mean Platelet Volume 10.3 FL (9.5-12.2); Monocytes # (A) 0.45 X 10*3/uL (0.20-1.00); Monocytes % (A) 8.6 %; NRBC Per 100 WBC 0 X 10*3/uL (0.00-0.01); Neutrophils # (A) 3.42 X 10*3/uL (1.80-7.70); Neutrophils % (A) 65.3 %; Platelet Count 296 X 10*3/uL (140-440); RBC 3.94 X 10*6/uL (4.40-5.60); RDW 12.8 % (11.5-14.5); WBC 5.24 X 10*3/uL (4.50-10.00)
== END | disposition home or self-care (01) ==
LOC: LABPAT 09:37
PROVIDERS: ATTEND Surgery
DX: Z01.812 Encounter for preprocedural laboratory examination (principal); K40.90 Unilateral inguinal hernia, without obstruction or gangrene, not specified as recurrent; R00.1 Bradycardia, unspecified
CPT/HCPCS: 36415; 85025; 86850; 86900; 86901; 93005

== ENCOUNTER 2023-05-22 08:08 | Day surgery (SDC) | payer MEDICARE ==
[2023-05-22] MEDS: LACTATED RINGERS 1,000 ML IV SCH (08:54)
[2023-05-22] MEDS ORDERED: ACETAMINOPHEN TAB 500 MG TAB ONE (09:10)
[2023-05-22] MEDS: DEXAMETHASONE SOD PHOSPHATE 4 MG/ML 1 ML VIAL IV ONE (09:14)
[2023-05-22] MEDS: ONDANSETRON 4 MG/2 ML VIAL IVP ONE (09:14)
[2023-05-22] MEDS: ACETAMINOPHEN TAB 500 MG TAB ONE (09:14)
[2023-05-22] MEDS: IBUPROFEN 600 MG TAB PO ONE (09:14)
[2023-05-22] MEDS: TAMSULOSIN 0.4 MG CAP.ER.24H PO ONE ×2 (09:14→12:13)
[2023-05-22] MEDS: HEPARIN SODIUM,PORCINE 5,000 UNIT/ML 1 ML VIAL SQ ONE (09:15)
[2023-05-22 09:16] LABS: ALT 10 U/L (4-49); AST 28 U/L (17-59); African American GFR (CKD) >90 (>60 ml/min/1.73 sqM); Albumin 4.1 g/dL (3.5-5.0); Alkaline Phosphatase 67 U/L (38-126); Anion Gap 6 mmol/L; Blood Urea Nitrogen 13 mg/dL (9-20); Calcium 9.4 mg/dL (8.4-10.2); Carbon Dioxide 25 mmol/L (22-30); Chloride 106 mmol/L (98-107); Glucose 99 mg/dL (74-99); Non-African American GFR(CKD) 79 (>60 ml/min/1.73 sqM); Potassium 4.6 mmol/L (3.5-5.1); Sodium 137 mmol/L (137-145); Total Bilirubin 1.5 mg/dL (0.2-1.3); Total Protein 6.7 g/dL (6.3-8.2)
[2023-05-22] MEDS ORDERED: LIDOCAINE 1% INJ 10MG/ML (20 ML MDV) ONE (09:37)
[2023-05-22] MEDS ORDERED: PROPOFOL 10 MG/ML 20 ML VIAL IV ONE (09:37)
[2023-05-22] MEDS ORDERED: KETOROLAC 15 MG/ML 1 ML VIAL ONE (09:37)
[2023-05-22] MEDS ORDERED: NEOSTIGMINE 1 MG/ML 10 ML VIAL ONE (09:37)
[2023-05-22] MEDS ORDERED: ROCURONIUM 10 MG/ML (5 ML VIAL) IV ONE (09:37)
[2023-05-22] MEDS ORDERED: GLYCOPYRROLATE 0.2 MG/ML 2 ML VIAL ONE (09:37)
[2023-05-22] MEDS ORDERED: SUCCINYLCHOLINE CHLORIDE 200 MG/10 ML VIAL IV ONE (09:37)
[2023-05-22] MEDS ORDERED: fentaNYL (PF) 50 MCG/ML 2 ML AMP ONE (09:37)
[2023-05-22] MEDS ORDERED: MIDAZOLAM 2 MG/2 ML VIAL ONE (09:37)
[2023-05-22] MEDS: LIDOCAINE 1%-EPI 1:100,000 50 ML VIAL SQ ONE (10:10)
--- NOTE | 2023-05-22 10:46 | P.OP ---
Date of Procedure: 05/22/23 Preoperative Diagnosis: Right inguinal hernia Postoperative Diagnosis: Right inguinal hernia Procedure(s) Performed: Laparoscopic robotic system repair of radial hernia Excision of cord lipoma Transverse abdominal block Anesthesia: KATHERINE Surgeon: Rasta Babin Estimated Blood Loss (ml): 5 Pathology: other (Cord lipoma) Condition: stable Disposition: PACU Description of Procedure: The patient's placed on the operating table in the supine position. The patient received general anesthesia. The patient's abdomen was prepped and draped in usual sterile fashion. The skin was anesthetized 1% local Xylocaine at the incision sites. Using an 11 blade a skin incision was made at the umbilicus. The fascia was grasped with a Sean and then the peritoneal cavity was entered with the Veress needle. Position of the Veress needle was confirmed with a positive drop test. After adequate insufflation a 5 mm trocar was placed into the peritoneal cavity. The Laparoscope was placed the peritoneal cavity. And a robotic 8 mm trocar was placed in the right lateral position and then another 8 mm robotic trochars placed in the left lateral position. The original 5 mm trocar was exchanged for a 12 mm trocar A four-quadrant transverse is also block was performed with 1 percent Xylocaine. . The patient was placed in reverse Trendelenburg and then the patient was docked to the robot. Next the peritoneum over top of the hernia was incised and then using blunt and sharp dissection and electrocautery the hernia sac was dissected free from the floor of the inguinal canal. The hernia sac was completely reduced into the peritoneal cavity. The cord lipoma was dissected free sent to pathology. And then using the Pro knife setter mesh the hernia was repaired. The peritoneum was then sutured with 20V lock suture. The patient was then undocked the robot. The needle was withdrawn from the peritoneal cavity. The umbilical trocar site was closed with 0 Ethibond suture. The skin was closed interrupted 3-0 Monocryl suture. Dermabond dressing was applied. Patient was sent to recovery in stable condition.
[2023-05-22] MEDS: HYDROmorphone 0.5 MG/0.5 ML SYRINGE IVP PRN (10:53)
[2023-05-22 11:02] VITALS: TEMP 97.1
[2023-05-22] MEDS: LACTATED RINGERS 1,000 ML IV ONE (11:44)
[2023-05-22 12:49] VITALS: BP 155/77; PULSE 55; RESP 16
== END 2023-05-22 14:56 | disposition home or self-care (01) ==
LOC: OR 08:08
PROVIDERS: ATTEND Surgery
DX: K40.90 Unilateral inguinal hernia, without obstruction or gangrene, not specified as recurrent (principal); I10 Essential (primary) hypertension; E78.5 Hyperlipidemia, unspecified; M06.9 Rheumatoid arthritis, unspecified; E07.9 Disorder of thyroid, unspecified; K21.9 Gastro-esophageal reflux disease without esophagitis; Z90.49 Acquired absence of other specified parts of digestive tract; Z90.89 Acquired absence of other organs; Z98.890 Other specified postprocedural states; Z85.46 Personal history of malignant neoplasm of prostate; Z79.890 Hormone replacement therapy
CPT/HCPCS: 49650; S2900; 80053

== ENCOUNTER → 2024-02-20 | Outpatient (CLI) | payer MEDICARE ==
[2024-02-20 09:08] LABS: African American GFR (CKD) >90 (>60 ml/min/1.73 sqM); Blood Urea Nitrogen 11 mg/dL (9-20); Non-African American GFR(CKD) 79 (>60 ml/min/1.73 sqM)
--- NOTE | 2024-02-20 10:08 | CT ---
EXAMINATION TYPE: CT iac w con DATE OF EXAM: 02/20/2024 10:00 AM COMPARISON: None. INDICATION: Patient age: Male; 78 years old; Reason for study: H93.19 TINNITUS, UNSPECIFIED EAR; TECHNIQUE: Multiple thin axial images were obtained through the temporal bones and internal auditory canals. Additional coronal reformatted images were obtained CT Contrast: 100 mL of Isovue [address] DLP: 142.70 mGycm, Automated exposure control for dose reduction was used. FINDINGS: Right Temporal Bone: External Ear: The external auditory canal is unremarkable, The tympanic membrane is present and unrem arkable. Middle Ear: The ossicles demonstrate a normal appearance. Prussak's space is clear and the scutum i s intact. There is no evidence of osseous erosion and the tegmen tympani is intact. Inner Ear: Cochlea, vestibule and semi circular canals are unremarkable. No evidence of carotid shankar l dehiscence. Two and a half turns of the cochlea are identified. The vestibular aqueduct is not enl arged. Mastoid Air Cells: The mastoid air cells are clear. The tegmen mastoideum is intact. The aditus ad an trum is clear. Internal Auditory Canal: The internal auditory canal is unremarkable. Left Temporal Bone: External Ear: The external auditory canal is unremarkable, The tympanic membrane is present and unrem arkable. Middle Ear: The ossicles demonstrate a normal appearance. Prussak's space is clear and the scutum i s intact. There is no evidence of osseous erosion and the tegmen tympani is intact. Inner Ear: Cochlea, vestibule and semi circular canals are unremarkable. No evidence of carotid shankar l dehiscence. Two and a half turns of the cochlea are identified. The vestibular aqueduct is not enl arged. Mastoid Air Cells: The mastoid air cells are clear. The tegmen mastoideum is intact. The aditus ad an trum is clear. Internal Auditory Canal: The internal auditory canal is unremarkable. Other: Mild paranasal sinus mucosal thickening. IMPRESSION: Normal internal auditory canal study. [facility], , 02/20/2024 10:05 AM
== END | disposition home or self-care (01) ==
LOC: RADCTMAIN 08:20
PROVIDERS: ATTEND Otolaryngology
DX: H93.19 Tinnitus, unspecified ear (principal)
CPT/HCPCS: 82565; 84520; 70481; 36415; Q9967